=== PATIENT | female | born 1945 | race Caucasian/White ===

== ENCOUNTER 2024-11-15 16:41 | Emergency (ER) | payer MEDICARE, SELFPAY ==
[2024-11-15] VITALS (8 sets, daily range): BP systolic 120–201; BP diastolic 70–127; PULSE 73–118; RESP 16–17; TEMP 36.7; O2SAT 92–99; BMI 38.6
--- NOTE | 2024-11-15 16:46 | CTR_ITS ---
PROCEDURE INFORMATION: Exam: CT Cervical Spine Without Contrast Exam date and time: 11/15/2024 5:02 PM Age: 79 years old Clinical indication: Injury or trauma; Fall; Blunt trauma TECHNIQUE: Imaging protocol: Computed tomography of the cervical spine without contrast. Radiation optimization: All CT scans at this facility use at least one of these dose optimization techniques: automated exposure control; mA and/or kV adjustment per patient size (includes targeted exams where dose is matched to clinical indication); or iterative reconstruction. COMPARISON: CT head wo con* [id number] 11/15/2024 5:02 PM RADIATION DOSE METRICS: Total DLP (mGy-cm): 276.68 FINDINGS: Bones/joints: Axial detailed source images demonstrate no distinct linear areas of decreased density as might suggest the presence of the fracture. The C1-C2 complex appears to be intact and in the range of normal and is well visualized on the sagittal and coronal reconstructions. Trace 1-2 mm anterolisthesis of C3/C4 is noted and consistent with degenerative ligamentous laxity which is in keeping with degenerative disc changes noted at C 4 5 and C5-C6 as well as C6-C7. Coronal reconstructions demonstrate mild convexity of the cervical spine being directed to the left. C2-C3: No significant disc bulge or herniation. No severe spinal canal stenosis. No significant neural foraminal narrowing. C3-C4: Prominent degenerative facet changes are seen on the left and best noted on the sagittal and coronal reconstructions. The canal and neural foramina do appear to be relatively intact though with only mild narrowing on the left.. C4-C5: Mzoy-le-lkecbflm broad-based posterior spurring is seen eccentric to the left with marked encroachment of the left neural foramina being present. The canal is relatively patent.. C5-C6: Mild posterior spur/disc prominence is seen with mild bilateral degenerative foraminal narrowing. The canal is patent.. C6-C7: Moderate broad-based posterior spurring is seen mildly narrowing the canal and mildly to moderately narrowing both neural foramina to a greater degree on the left than the right. The canal is patent. C7-T1: No significant disc bulge or herniation. No severe spinal canal stenosis. No significant neural foraminal narrowing. Lungs: A punctate calcified granuloma seen along the anterior most aspect of the visualized apical lung regions on the right (image 89 series 6). Soft tissues: The thyroid gland appears to be unremarkable except for a punctate calcification in the right lobe. This is not felt to be significant. There are some non pathologically enlarged lymph nodes seen in the partially visualized Mamie carinal region with remote granulomatous like calcification seen . Degenerative dystrophic calcification is seen posteriorly at the midline centering at the C6-C7 level. CT/CT cervical spin wo con* [id number] IMPRESSION: 1. No acute osseous cervical spine CT findings. 2. Multilevel bmzx-eb-ilpisnco osteoarthritic/degenerative changes , as described. 3. Mild superior T3 endplate concavity of indeterminate age.
--- NOTE | 2024-11-15 16:46 | CTR_ITS ---
PROCEDURE INFORMATION: Exam: CT Head Without Contrast Exam date and time: 11/15/2024 5:02 PM Age: 79 years old Clinical indication: Injury or trauma; Head/neck trauma post fall TECHNIQUE: Imaging protocol: Computed tomography of the head without contrast. Radiation optimization: All CT scans at this facility use at least one of these dose optimization techniques: automated exposure control; mA and/or kV adjustment per patient size (includes targeted exams where dose is matched to clinical indication); or iterative reconstruction. COMPARISON: CT cervical spin wo con* [id number] 11/15/2024 5:02 PM RADIATION DOSE METRICS: Total DLP (mGy-cm): 1166.4 FINDINGS: Brain: Parenchymal structures of the brain demonstrates some mild patchy decreased density in the periventricular and deep white matter regions of the cerebral hemispheres. Beam hardening artifact is skull base slightly obscures resolution of the posterior fossa structures. The midline is intact. Punctate bilateral basal ganglia calcifications are noted and in the range of normal. No hemorrhage. Unremarkable white matter. No mass effect. Prominent atherosclerotic calcifications are seen involving the vertebral arteries at the level of the foramen magnum. Cerebral ventricles: No ventriculomegaly. Paranasal sinuses: Visualized sinuses are unremarkable. No fluid levels. Mastoid air cells: Visualized mastoid air cells are well aerated. Orbital cavities: Bilateral cataract surgery. Bilateral exophthalmos is noted. Bones: Unremarkable. No acute fracture. Soft tissues: Mild soft tissue swelling of the scalp just to the right of midline along the frontal area. CT/CT head wo con* [id number] IMPRESSION: 1. No acute intracranial head CT findings. 2. Mild frontal scalp hematoma. 3. Atrophy/involutional changes of aging with mild components of chronic small-vessel disease. 4. Bilateral exophthalmos question history of thyroid ophthalmopathy.
--- NOTE | 2024-11-15 16:47 | W.ED.FALL ---
HPI - Fall General: Stated Complaint: fall - head lac Time Seen by Provider: 11/15/24 16:46 History of Present Illness: 79-year-old female Associated symptoms-after fall: Denies abdominal pain, chest pain or neck pain Review of Systems Const: Denies: fever(s) or chills Card: Denies: chest pain Resp: Denies: dyspnea GI: Denies: abdominal pain : Denies: dysuria, urinary frequency or urinary urgency Musc: Denies: neck pain or back pain Skin/Breast: Denies: rash Physical Exam Const: COMMON NORMALS: no acute distress GENERAL APPEARANCE: cooperative and comfortable ORIENTATION/CONSCIOUSNESS: Yes awake, Yes oriented to person, Yes oriented to place and Yes oriented to time HENMT: COMMON NORMALS: normocephalic, atraumatic and hearing grossly normal bilaterally HEAD & SCALP: normocephalic and atraumatic Resp: COMMON NORMALS: normal respiratory effort, No retractions, No use of accessory muscles and clear to auscultation bilaterally AUSCULTATION: clear to auscultation bilaterally Cardio: COMMON NORMALS: regular rate, regular rhythm and No murmurs present (Cardio) RATE: regular rate RHYTHM: regular rhythm GI: COMMON NORMALS: Soft to palpation and No hepatosplenomegaly present AUSCULTATION: Yes normoactive bowel sounds PALPATION: Yes Soft to palpation, No Tenderness to palpation present (GI), No Guarding due to palpation present (GI) and Yes No hepatosplenomegaly present Extremity: COMMON NORMALS: normal to inspection, capillary refill normal, no clubbing, cyanosis or edema, no calf tenderness and no pedal edema Neuro: SENSORIUM/ORIENTATION: Yes oriented to person, Yes oriented to place and Yes oriented to time Skin: COMMON NORMALS: no rashes or lesions noted GENERAL SKIN EXAM: no rashes or lesions noted Discharge Plan Discharge Condition: Stable Print Language: [place] Coding Level of Care Code ED Aluminum Pool Installer for Estiven Suárez
--- NOTE | 2024-11-15 16:50 | XRR_ITS ---
PROCEDURE INFORMATION: Exam: XR Left Shoulder Exam date and time: 11/15/2024 5:02 PM Age: 79 years old Clinical indication: Left; Lt shoulder pain post fall; Additional info: Fall, shoulder pain TECHNIQUE: Imaging protocol: Radiologic exam of the left shoulder. Views: 2 or more views. COMPARISON: CT cervical spin wo con* [id number] 11/15/2024 5:02 PM FINDINGS: Bones/joints: Comminuted displaced fractures involve the humeral head. The humeral head remains properly positioned with respect to the glenoid. No other fracture noted. Soft tissues: Normal. XR/XR shoulder LT min 2V* [id number] IMPRESSION: Acute nondisplaced humeral head fractures
--- NOTE | 2024-11-15 16:54 | ED_ITS ---
Documented by User: Lisa Osborne MD 11/15/24 20:02 HPI - Fall 2 General: Chief Complaint: Fall Stated Complaint: fall - head lac Time Seen by Provider: 11/15/24 16:46 History of Present Illness: 79-year-old woman who presents emergency room after having had a fall by ambulance. She fell at home in her garage. Tripped. She hit her head on concrete. She has a large laceration running across her forehead. No loss of consciousness. She is having pain in her left arm and thinks she may have broken it. No blood thinners. No loss of consciousness. No altered mental status. She does have some nausea but no vomiting. She is quite hypertensive. Related Data Previous Rx's ?Medication ?Instructions ?Recorded hydrocodone 5 mg-acetaminophen 325 1 tab PO Q6H PRN pa in #20 tabs 11/15/24 mg tablet ondansetron 4 mg disintegrating 4 mg PO Q8H PRN nausea and 11/15/24 tablet vomiting #10 tabs polyethylene glycol 3350 17 17 g PO DAILY #510 grams 0 11/15/24 gram/dose oral powder (Miralax) Allergies Allergy/AdvReac Type Severity Reaction Status Date / Time morphine Allergy ALGY-Hives Verified 11/15/24 19:20 Review of Systems 2 Narrative: Constitutional symptoms: Negative except as documented in HPI. Skin symptoms: Negative except as documented in HPI. Eye symptoms: Negative except as documented in HPI. ENMT symptoms: Negative except as documented in HPI. Respiratory symptoms: Negative except as documented in HPI. Cardiovascular symptoms: Negative except as documented in HPI. Gastrointestinal symptoms: Negative except as documented in HPI. Genitourinary symptoms: Negative except as documented in HPI. Musculoskeletal symptoms: Negative except as documented in HPI. Neurologic symptoms: Negative except as documented in HPI. Psychiatric symptoms: Negative except as documented in HPI. Endocrine symptoms: Negative except as documented in HPI. Physical Exam 2 Narrative: EXAM NARRATIVE: General: Alert, no acute distress. Skin: Warm, dry. Head: Normocephalic, large laceration across the forehead.. Neck: Supple, trachea midline. Eye: Extraocular movements are intact. Ears, nose, mouth and throat: mucosa moist. Cardiovascular: Regular, Normal peripheral perfusion. Respiratory: Lungs are clear to auscultation, respirations are non-labored, breath sounds are equal, Symmetrical chest wall expansion. Gastrointestinal: Soft, Nontender, Non distended Musculoskeletal: No obvious deformity of the left shoulder but she does have extreme pain with any movement. No other deformities. Neurological: Alert and oriented, No focal neurological deficit observed. Psychiatric: Cooperative, appropriate mood & affect. Course 2 Vital Signs: Vital signs: Vital Signs Temperature 98.0 F 11/15/24 16:43 Pulse Rate 82 11/15/24 20:00 Respiratory Rate 16 11/15/24 18:51 Blood Pressure 152/123 11/15/24 20:00 Pulse Oximetry 98 11/15/24 20:00 Oxygen Delivery Me thod Room Air 11/15/24 20:00 MDM - Fall Medical Decision Making CT head: Laceration/hematoma over the forehead. No acute intracranial process. no intracranial hemorrhage, no evidence of infarct. no evidence of acute fracture.This was reviewed and interpreted by myself the ER physician. CT of the cervical spine: Degenerative changes. No fracture. Good alignment. No step-offs. This was reviewed and interpreted by myself the emergency room physician. I also reviewed the radiologist report. X-ray of the left shoulder shows a nondisplaced humeral head fracture. This was reviewed and interpreted by myself the emergency room physician. I also reviewed the radiology report Lab Review: Laboratory results were reviewed and interpreted by myself the emergency room physician. Mild leukocytosis. No renal failure. No anemia. I reviewed the patient's medical record. Reexamination: Patient has had no altered mental status. No confusion. She had an allergic reaction to morphine. She has had hydrocodone before so we are giving that here and writing some for home. Consultation: I spoke with Dr. Stevenson who is on-call for orthopedics. He recommends sling and follow-up in clinic. Assessment and plan: Fall Head injury Facial laceration Humeral head fracture Accelerated hypertension ?Morphine with a reaction. She is tolerating hydrocodone. Also some hydralazine for her blood pressure. - Discharged home - Discussed plan with patient. Answered any questions. - Evaluation and treatment of this problem were appropriate in the emergency setting. Lab Data 11/15/24 18:21 11/15/24 18:21 Radiology Impressions Cervical Spine CT 11/15/24 16:46 IMPRESSION: 1. No acute osseous cervical spine CT findings. 2. Multilevel vttz-rb-hjbcwrts osteoarthritic/degenerative changes , as described. 3. Mild superior T3 endplate concavity of indeterminate age. Head CT 11/15/24 16:46 IMPRESSION: 1. No acute intracranial head CT findings. 2. Mild frontal scalp hematoma. 3. Atrophy/involutional changes of aging with mild components of chronic small-vessel disease. 4. Bilateral exophthalmos question history of thyroid ophthalmopathy. Shoulder X-Ray 11/15/24 16:50 IMPRESSION: Acute nondisplaced humeral head fractures Laboratory Results WBC 15.17 10^3/uL (3.29-11.43) H 11/15/24 18:21 RBC 4.34 10^6/uL (3.85-5.65) 11/15/24 18:21 Hgb 15.10 g/dL (11.27-16.99) 11/15/24 18:21 Hct 45.3 % (36-47) 11/15/24 18:21 MCV 104.4 fl (85-98) H 11/15/24 18:21 MCH 34.8 pg (27-33) H 11/15/24 18:21 MCHC 33.3 g/dL (30-55) 11/15/24 18:21 RDW 13.6 % (12.1-15.1) 11/15/24 18:21 Plt Count 233 10^3/cmm (157-399) 11/15/24 18:21 MPV 10.2 fL (7.4-10.4) 11/15/24 18:21 Neut % (Auto) 85.3 % 11/15/24 18:21 Lymph % (Auto) 8.8 % 11/15/24 18:21 Refugio % (Auto) 4.6 % 11/15/24 18:21 Eos % (Auto) 0.3 % 11/15/24 18:21 Baso % (Auto) 0.3 % 11/15/24 18:21 Neut # (Auto) 12.94 10^3/uL (1.8-7.7) H 11/15/24 18:21 Lymph # (Auto) 1.3 10^3/uL (0.8-4.8) 11/15/24 18:21 [place]ug[place] # (Auto) 0.7 10^3/uL (0.2-0.9) 11/15/24 18:21 Eos # (Auto) 0.1 10^3/uL (0.0-0.8) 11/15/24 18:21 Baso # (Auto) 0.0 10^3/uL (0.0-0.1) 11/15/24 18:21 Nucleated RBC % (auto) 0 % 11/15/24 18:21 Nucleated RBCs # 0.0 /100WBC 11/15/24 18:21 Sodium 134 mmol/L (136-145) L 11/15/24 18:21 Potassium 3.8 mmol/L (3.5-5.1) 11/15/24 18:21 Chloride 98 mmol/L (98-107) 11/15/24 18:21 Carbon Dioxide 21 mmol/L (22-29) L 11/15/24 18:21 Anion Gap 18.8 (5-19) 11/15/24 18:21 BUN 17 mg/dL (8-23) 11/15/24 18:21 Creatinine 0.4 mg/dL (0.5-0.9) L 11/15/24 18:21 GFR Calculation Not Reportable 11/15/24 18:21 Glucose 135 mg/dL (65-115) H 11/15/24 18:21 Calculated Osmolality 282 mOsm/kg (285-295) L 11/15/24 18:21 Calcium 9.3 mg/dL (8.5-10.5) 11/15/24 18:21 Total Bilirubin 1.4 mg/dL (0.15-1.2) H 11/15/24 18:21 AST 61 U/L (0-32) H 11/15/24 18:21 ALT 43 U/L (0-33) H 11/15/24 18:21 Alkaline Phosphatase 207 U/L (35-105) H 11/15/24 18:21 Total Protein 7.6 g/dL (6.6-8.7) 11/15/24 18:21 Albumin 3.8 g/dL (3.5-5.2) 11/15/24 18:21 Globulin 3.8 g/dL (1.3-4.6) 11/15/24 18:21 All radiology interpretation(s) finalized by discharge Discharge Plan Discharge Patient Disposition: Home Clinical Impression: Forehead laceration, Fracture of head of humerus, Fall, Head injury, Accelerated hypertension Condition: Stable Prescriptions: New hydrocodone-acetaminophen 5-325 mg tablet 1 tab PO Q6H PRN (Reason: pain) Qty: 20 0RF polyethylene glycol 3350 [Miralax] 17 gram/dose powder 17 g PO DAILY Qty: 510 0RF Rx Instructions: Take 1 scoop daily while taking pain medications. ondansetron 4 mg tablet,disintegrating 4 mg PO Q8H PRN (Reason: nausea and vomiting) Qty: 10 0RF Discharge Orders: Discharge ED (Routine); Ordered 11/15/24 Ordered By: Lisa Osborne Referrals: Giovanni Stevenson MD [Physician] - 4-7 days (Please call for follow-up appointment.) Discharge Diet: Usual diet Discharge Activity: Increase activity as tolerated Patient Instructions: Opioid Safety, Pain Management Activity Restrictions/Additional Instructions: Keep the area clean and dry, wash twice per day with antibacterial soap and water. Return to your primary provider or the emergency room in 10 days for suture removal. Avoid any prolonged submersion in water. Avoid all christie water, pond water, streams or other untreated water. Thank you for choosing [facility] for your healthcare needs today. Please realize this is an emergency room and that we are providing you with a medical screening exam and this may not be complete and all inclusive of all the testing and or work up that you may need to determine your ailment or severity of your illness. You have been screened and evaluated and felt safe for discharge. Health conditions do change or evolve sometimes and as such it is important that you follow up with your Primary Doctor to be re checked, 3-5 days is a general good time frame for follow up. You are always welcome to return to the ED for re assessment if your symptoms are worsening or you have new concerns Print Language: Citizen Of [place] Coding Level of Care Code ED Carpet Cutter for Chg Fwd Documented by User: ALEXIS Loya 11/15/24 20:24 HPI - Fall 2 General: Chief Complaint: Fall Stated Complaint: fall - head lac Time Seen by Provider: 11/15/24 16:46 Related Data Previous Rx's ?Medication ?Instructions ?Recorded hydrocodone 5 mg-acetaminophen 325 1 tab PO Q6H PRN pa in #20 tabs 11/15/24 mg tablet ondansetron 4 mg disintegrating 4 mg PO Q8H PRN nausea and 11/15/24 tablet vomiting #10 tabs polyethylene glycol 3350 17 17 g PO DAILY #510 grams 0 11/15/24 gram/dose oral powder (Miralax) Allergies Allergy/AdvReac Type Severity Reaction Status Date / Time morphine Allergy ALGY-Hives Verified 11/15/24 19:20 Procedures Laceration Laceration 1: Site: scalp Size (cm): 10 Description: linear Depth: simple, single layer Local Anesthetic: lidocaine 1% and with epi Amount of anesthesia used (mL): 8 Skin layer closed with: nylon Size (cm): 6-0 Number of sutures: 10 Technique: simple, interrupted Course 2 Vital Signs: Vital signs: Vital Signs Temperature 98.0 F 11/15/24 16:43 Pulse Rate 82 11/15/24 20:00 Respiratory Rate 16 11/15/24 18:51 Blood Pressure 152/123 11/15/24 20:00 Pulse Oximetry 98 11/15/24 20:00 Oxygen Delivery Me thod Room Air 11/15/24 20:00 MDM - Fall Lab Data 11/15/24 18:21 11/15/24 18:21 Radiology Impressions Cervical Spine CT 11/15/24 16:46 IMPRESSION: 1. No acute osseous cervical spine CT findings. 2. Multilevel fpak-ld-ojpabnvz osteoarthritic/degenerative changes , as described. 3. Mild superior T3 endplate concavity of indeterminate age. Head CT 11/15/24 16:46 IMPRESSION: 1. No acute intracranial head CT findings. 2. Mild frontal scalp hematoma. 3. Atrophy/involutional changes of aging with mild components of chronic small-vessel disease. 4. Bilateral exophthalmos question history of thyroid ophthalmopathy. Shoulder X-Ray 11/15/24 16:50 IMPRESSION: Acute nondisplaced humeral head fractures Laboratory Results WBC 15.17 10^3/uL (3.29-11.43) H 11/15/24 18:21 RBC 4.34 10^6/uL (3.85-5.65) 11/15/24 18:21 Hgb 15.10 g/dL (11.27-16.99) 11/15/24 18:21 Hct 45.3 % (36-47) 11/15/24 18:21 MCV 104.4 fl (85-98) H 11/15/24 18:21 MCH 34.8 pg (27-33) H 11/15/24 18:21 MCHC 33.3 g/dL (30-55) 11/15/24 18:21 RDW 13.6 % (12.1-15.1) 11/15/24 18:21 Plt Count 233 10^3/cmm (157-399) 11/15/24 18:21 MPV 10.2 fL (7.4-10.4) 11/15/24 18:21 Neut % (Auto) 85.3 % 11/15/24 18:21 Lymph % (Auto) 8.8 % 11/15/24 18:21 Refugio % (Auto) 4.6 % 11/15/24 18:21 Eos % (Auto) 0.3 % 11/15/24 18:21 Baso % (Auto) 0.3 % 11/15/24 18:21 Neut # (Auto) 12.94 10^3/uL (1.8-7.7) H 11/15/24 18:21 Lymph # (Auto) 1.3 10^3/uL (0.8-4.8) 11/15/24 18:21 [place]ug[place] # (Auto) 0.7 10^3/uL (0.2-0.9) 11/15/24 18:21 Eos # (Auto) 0.1 10^3/uL (0.0-0.8) 11/15/24 18:21 Baso # (Auto) 0.0 10^3/uL (0.0-0.1) 11/15/24 18:21 Nucleated RBC % (auto) 0 % 11/15/24 18: Nucleated RBCs # 0.0 /100WBC 11/15/24 18:21 Sodium 134 mmol/L (136-145) L 11/15/24 18:21 Potassium 3.8 mmol/L (3.5-5.1) 11/15/24 18:21 Chloride 98 mmol/L (98-107) 11/15/24 18:21 Carbon Dioxide 21 mmol/L (22-29) L 11/15/24 18:21 Anion Gap 18.8 (5-19) 11/15/24 18:21 BUN 17 mg/dL (8-23) 11/15/24 18:21 Creatinine 0.4 mg/dL (0.5-0.9) L 11/15/24 18:21 GFR Calculation Not Reportable 11/15/24 18:21 Glucose 135 mg/dL (65-115) H 11/15/24 18:21 Calculated Osmolality 282 mOsm/kg (285-295) L 11/15/24 18:21 Calcium 9.3 mg/dL (8.5-10.5) 11/15/24 18:21 Total Bilirubin 1.4 mg/dL (0.15-1.2) H 11/15/24 18:21 AST 61 U/L (0-32) H 11/15/24 18:21 ALT 43 U/L (0-33) H 11/15/24 18:21 Alkaline Phosphatase 207 U/L (35-105) H 11/15/24 18:21 Total Protein 7.6 g/dL (6.6-8.7) 11/15/24 18:21 Albumin 3.8 g/dL (3.5-5.2) 11/15/24 18:21 Globulin 3.8 g/dL (1.3-4.6) 11/15/24 18:21 Discharge Plan Discharge Patient Disposition: Home Clinical Impression: Forehead laceration, Fracture of head of humerus, Fall, Head injury, Accelerated hypertension Condition: Stable Prescriptions: New hydrocodone-acetaminophen 5-325 mg tablet 1 tab PO Q6H PRN (Reason: pain) Qty: 20 0RF polyethylene glycol 3350 [Miralax] 17 gram/dose powder 17 g PO DAILY Qty: 510 0RF Rx Instructions: Take 1 scoop daily while taking pain medications. ondansetron 4 mg tablet,disintegrating 4 mg PO Q8H PRN (Reason: nausea and vomiting) Qty: 10 0RF Discharge Orders: Discharge ED (Routine); Ordered 11/15/24 Ordered By: Lisa L Osborne Referrals: Giovanni Stevenson MD [Physician] - 4-7 days (Please call for follow-up appointment.) Discharge Diet: Usual diet Discharge Activity: Increase activity as tolerated Patient Instructions: Opioid Safety, Pain Management Activity Restrictions/Additional Instructions: Keep the area clean and dry, wash twice per day with antibacterial soap and water. Return to your primary provider or the emergency room in 10 days for suture removal. Avoid any prolonged submersion in water. Avoid all christie water, pond water, streams or other untreated water. Thank you for choosing [facility] for your healthcare needs today. Please realize this is an emergency room and that we are providing you with a medical screening exam and this may not be complete and all inclusive of all the testing and or work up that you may need to determine your ailment or severity of your illness. You have been screened and evaluated and felt safe for discharge. Health conditions do change or evolve sometimes and as such it is important that you follow up with your Primary Doctor to be re checked, 3-5 days is a general good time frame for follow up. You are always welcome to return to the ED for re assessment if your symptoms are worsening or you have new concerns Print Language: Citizen Of [place] Coding Level of Care Code ED Carpet Cutter for Estiven Suárez
--- NOTE | 2024-11-15 17:20 | ECG_ITS ---
[employer] Test Date: 2024-11-15 Pat Name: Beverley Hallman Department: Room: Gender: Female Transfusion Aide: : 1945 Requested By: Freddy Mariscal Order Number: [id number] Shaina MD: Gordon Brown M.D. Measurements Intervals [place] Rate: 82 P: -16 RI: 181 QRS: 64 QRSD: 82 T: 6 QT: 384 QTc: 451 Interpretive Statements SINUS RHYTHM POSSIBLE ANTERIOR MYOCARDIAL INFARCTION , PROBABLY OLD [30 ms Q WAVE IN V3/V4, OR R < 0.2 mV IN V4] No previous ECG available for comparison Electronically Signed On 11-16-2024 18:01:05 UNDERWATER TRAPPER by Gordon Brown M.D. [email or web address]
[2024-11-15] MEDS: lidocaine 1% 10 ML INJ INJECTION (17:45)
[2024-11-15] MEDS: tetanus-dipt-pertussis 0.5 mL SDV IM (17:58)
[2024-11-15 18:38] LABS: Basophils % 0.3 %; Eosinophils # 0.1 10^3/uL (0.0-0.8); Eosinophils % 0.3 %; Hematocrit 45.3 % (36-47); Lymphocytes # 1.3 10^3/uL (0.8-4.8); Lymphocytes % 8.8 %; Mean Corpuscular HGB Conc 33.3 g/dL (30-55); Mean Corpuscular Hemoglobin 34.8 pg (27-33); Mean Corpuscular Volume 104.4 fl (85-98); Mean Platelet Volume 10.2 fL (7.4-10.4); Monocytes # 0.7 10^3/uL (0.2-0.9); Monocytes % 4.6 %; Neutrophils # 12.94 10^3/uL (1.8-7.7); Neutrophils % 85.3 %; Nucleated Red Blood Cells % 0 %; Platelet Count 233 10^3/cmm (157-399); Red Blood Count 4.34 10^6/uL (3.85-5.65); Red Cell Distribution Width 13.6 % (12.1-15.1); White Blood Count 15.17 10^3/uL (3.29-11.43)
[2024-11-15] MEDS: ondansetron 2 mg/ML SDV 2 mL 4 MG IVP (18:46)
[2024-11-15] MEDS: morphine 4 mg/mL SDV 1 mL IVP (18:51)
[2024-11-15 19:02] LABS: Alanine Aminotransferase 43 U/L (0-33); Albumin Level 3.8 g/dL (3.5-5.2); Alkaline Phosphatase 207 U/L (35-105); Blood Urea Nitrogen 17 mg/dL (8-23); Calcium 9.3 mg/dL (8.5-10.5); Carbon Dioxide 21 mmol/L (22-29); Chloride 98 mmol/L (98-107); Creatinine Clr Calc Pharmacy 78.0147; Globulin 3.8 g/dL (1.3-4.6); Glucose 135 mg/dL (65-115); Osmolality Calculated 282 mOsm/kg (285-295); Sodium 134 mmol/L (136-145); Total Bilirubin 1.4 mg/dL (0.15-1.2); Total Protein 7.6 g/dL (6.6-8.7)
[2024-11-15 19:06] LABS: Anion Gap 18.8 (5-19); Aspartate Amino Transferase 61 U/L (0-32); Potassium 3.8 mmol/L (3.5-5.1)
[2024-11-15] MEDS: diphenhydrAMINE 50 mg/mL SDV 1mL 25 MG IVP (19:19)
--- NOTE | 2024-11-15 19:19 | PC.NURSE ---
pt med reaction pt was given zofran and morphine. pt began having itching and welts on her right arm. morphine added to pt allergy list and education given.
[2024-11-15] MEDS: HYDROcodone-acetaminophen 10-325 mg Tablet 1 TAB PO (20:02)
[2024-11-15] MEDS: hyDRALAzine 20 mg/mL INJ 1 mL 10 MG IVP (20:02)
[2024-11-15] MEDS: HYDROcodone-acetaminophen 5-325 mg Tablet 2 TAB PO (20:05)
== END 2024-11-15 20:30 | disposition home or self-care (01) ==
PROVIDERS: Family Medicine; Emergency Provider Emergency Medicine
DX: S42.302A Unspecified fracture of shaft of humerus, left arm, initial encounter for closed fracture (principal); S01.81XA Laceration without foreign body of other part of head, initial encounter; S09.8XXA Other specified injuries of head, initial encounter; I10 Essential (primary) hypertension; W19.XXXA Unspecified fall, initial encounter; Z23 Encounter for immunization
CPT/HCPCS: 12015; 70450; 72125; 73030; 80053; 85025; 90471; 90715; 93005; 96374; 96375; 99285; J0360; J1200; J2270; J2405

== ENCOUNTER → 2024-11-25 10:34 | Outpatient (BNVA) | payer MEDICARE, SELFPAY | PROVIDERS: Visit Provider Orthopaedic Surgery | DX: S42.202A Unspecified fracture of upper end of left humerus, initial encounter for closed fracture (principal); W19.XXXA Unspecified fall, initial encounter | CPT/HCPCS: 73030; 99204 ==

== ENCOUNTER 2024-11-25 11:23 | Emergency (ER) | payer MEDICARE, SELFPAY ==
[2024-11-25 11:32] VITALS: BP 127/79; PULSE 51; TEMP 36.3; O2SAT 96; BMI 39.6
--- NOTE | 2024-11-25 11:44 | W.ED.RECABL ---
HPI - Recheck/Abnormal Lab/Rx General: Chief Complaint: Recheck/Abnormal Lab/Rx Stated Complaint: removal of stitches Time Seen by Provider: 11/25/24 11:39 Source: patient and family Mode of arrival: wheelchair Limitations: no limitations History of Present Illness: Patient is a 79-year-old female presents to ED today along with family for an encounter for suture removal. Patient was treated here in the emergency department 10 days ago and had sutures to her forehead placed. She has not had any issues with these. She has no other concerns at this time. complaint: suture/staple removal Initial visit (ago): day(s) Initial visit for: laceration Returns today for: staple/stitch removal Symptoms since prior visit: no new symptoms Associated symptoms: none Related Data Home Medications ?Medication ?Instructions ?Recorded ?Confirmed allopurinol 300 mg tablet 300 mg PO DAILY 11/25/24 11/25/24 hydrochlorothiazide 25 mg tablet 25 mg PO DAILY 11/25/24 11/25/24 levothyroxine 75 mcg tablet 75 mcg PO DAILY 11/25/24 11/25/24 lisinopril 20 mg tablet 40 mg PO DAILY 11/25/24 11/25/24 loratadine 10 mg tablet (Allergy 10 mg PO DAILY 11/25/24 11/25/24 Relief (loratadine)) naproxen 500 mg tablet 500 mg PO BID 11/25/24 11/25/24 tizanidine 4 mg tablet 4 mg PO TID 11/25/24 11/25/24 Previous Rx's ?Medication ?Instructions ?Recorded hydrocodone 5 mg-acetaminophen 325 1 tab PO Q6H PRN pain #20 tabs 11/15/24 mg tablet ondansetron 4 mg disintegrating 4 mg PO Q8H PRN nausea and 11/15/24 tablet vomiting #10 tabs polyethylene glycol 3350 17 17 g PO DAILY #510 grams 11/15/24 gram/dose oral powder (Miralax) Allergies Allergy/AdvReac Type Severity Reaction Status Date / Time morphine Allergy ALGY-Hives Verified 11/25/24 11:38 Review of Systems Skin/Breast: Reports: other (healing forehead laceration) Neuro: Denies: headache(s) PFSH ED PFSH: Social History Smoking and tobacco/nicotine status: never used tobacco/nicotine Physical Exam Const: COMMON NORMALS: no acute distress, average body habitus, no limitations, healthy appearing, alert and well nourished HENMT: FACE & SINUS: other (healing forehead laceration; looks clean; sutures removed) Neck/C-Spine: COMMON NORMALS: full ROM CERVICAL SPINE: No Cervical spine tenderness Neuro: SENSORIUM/ORIENTATION: Yes alert Course Vital Signs: Vital signs: Vital Signs Temperature 97.4 F L 11/25/24 11:32 Pulse Rate 51 L 11/25/24 11:32 Blood Pressure 127/79 11/25/24 11:32 Pulse Oximetry 96 11/25/24 11:32 Oxygen Delivery Me thod Room Air 11/25/24 11:32 MDM - Recheck/Abnormal Lab/Rx Medical Decision Making Laceration is well-appearing/healing. Sutures removed without difficulty. Medical Records I reviewed the patient's medical records. No radiology studies performed this visit Discharge Plan Discharge Patient Disposition: Home Clinical Impression: Encounter for removal of sutures Condition: Stable Prescriptions: No Action tizanidine 4 mg tablet 4 mg PO TID loratadine [Allergy Relief (loratadine)] 10 mg tablet 10 mg PO DAILY naproxen 500 mg tablet 500 mg PO BID lisinopril 20 mg tablet 40 mg PO DAILY levothyroxine 75 mcg tablet 75 mcg PO DAILY allopurinol 300 mg tablet 300 mg PO DAILY hydrochlorothiazide 25 mg tablet 25 mg PO DAILY hydrocodone-acetaminophen 5-325 mg tablet 1 tab PO Q6H PRN (Reason: pain) Qty: 20 0RF polyethylene glycol 3350 [Miralax] 17 gram/dose powder 17 g PO DAILY Qty: 510 0RF Rx Instructions: Take 1 scoop daily while taking pain medications. ondansetron 4 mg tablet,disintegrating 4 mg PO Q8H PRN (Reason: nausea and vomiting) Qty: 10 0RF Discharge Orders: Discharge ED (Routine); Ordered 11/25/24 Ordered By: Maggie Vega Referrals: Angel Chauhan DO [Primary Care Provider] - Patient Instructions: Stitches Removal (ED) Print Language: Jamaican Coding Level of Care Code ED Outreach Rep for Bereketg Fwd
[2024-11-25 11:51] VITALS: BP 119/74; PULSE 52; O2SAT 94
== END 2024-11-25 11:52 | disposition home or self-care (01) ==
PROVIDERS: Emergency Provider Physician Assistant; PCP Family Medicine
DX: Z48.02 Encounter for removal of sutures (principal)
CPT/HCPCS: 99281

== ENCOUNTER 2024-12-07 13:13 | Emergency (ER) | payer MEDICARE, SELFPAY ==
[2024-12-07 13:19] VITALS: BP 111/57; PULSE 82; RESP 22; O2SAT 98; BMI 38.4
--- NOTE | 2024-12-07 13:20 | ECG_ITS ---
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
--- NOTE | 2024-12-07 13:20 | XRR_ITS ---
PROCEDURE INFORMATION: Exam: XR Chest Exam date and time: 12/07/2024 1:28 PM Age: 79 years old Clinical indication: Other: Weakness TECHNIQUE: Imaging protocol: Radiologic exam of the chest. Views: 1 view. COMPARISON: CR XR shoulder LT min 2V* [id number] 11/25/2024 10:35 AM FINDINGS: Lungs: Unremarkable. No consolidation. Pleural spaces: Unremarkable. No pleural effusion. No pneumothorax. Heart/Mediastinum: Unremarkable. No cardiomegaly. Bones/joints: Previously seen proximal left humeral fracture is again noted. No new findings. XR/XR chest 1V portable [id number] IMPRESSION: No acute findings.
--- NOTE | 2024-12-07 13:22 | W.ED.SYNCOPE ---
HPI - Syncope General: Chief Complaint: Syncope Stated Complaint: symptomatic bradycardia Time Seen by Provider: 12/07/24 13:15 History of Present Illness: 79-year-old female who presents emergency room after a syncopal episode. She was visiting her in a fpc and passed out. EMS reports she was bradycardic and hypotensive on their arrival. She received some fluid and has since improved. On presentation here pulse is 82 and her blood pressure is 111/57. She was sitting in the chair. No injuries. She repeatedly tells me that her 's family wants to kill her. I do not see how it is related to what is going on here today exactly. Related Data Home Medications ?Medication ?Instructions ?Recorded ?Confirmed allopurinol 300 mg tablet 300 mg PO DAILY 11/25/24 12/07/24 hydrochlorothiazide 25 mg tablet 25 mg PO DAILY 11/25/24 12/07/24 levothyroxine 75 mcg tablet 75 mcg PO DAILY 11/25/24 12/07/24 lisinopril 20 mg tablet 40 mg PO DAILY 11/25/24 12/07/24 naproxen 500 mg tablet 500 mg PO BID 11/25/24 12/07/24 tizanidine 4 mg tablet 4 mg PO TID PRN muscle spasms 11/25/24 12/07/24 Previous Rx's ?Medication ?Instructions ?Recorded hydrocodone 5 mg-acetaminophen 325 1 tab PO Q6H PRN pain #20 tabs 11/15/24 mg tablet ondansetron 4 mg disintegrating 4 mg PO Q8H PRN nausea and 11/15/24 tablet vomiting #10 tabs polyethylene glycol 3350 17 17 g PO DAILY #510 grams 11/15/24 gram/dose oral powder (Miralax) hydroxyzine HCl 10 mg tablet 10 mg PO BID PRN anxiety #60 tabs 12/03/24 Allergies Allergy/AdvReac Type Severity Reaction Status Date / Time morphine Allergy ALGY-Hives Verified 12/07/24 13:27 Review of Systems Narrative: Constitutional symptoms: Negative except as documented in HPI. Skin symptoms: Negative except as documented in HPI. Eye symptoms: Negative except as documented in HPI. ENMT symptoms: Negative except as documented in HPI. Respiratory symptoms: Negative except as documented in HPI. Cardiovascular symptoms: Negative except as documented in HPI. Gastrointestinal symptoms: Negative except as documented in HPI. Genitourinary symptoms: Negative except as documented in HPI. Musculoskeletal symptoms: Negative except as documented in HPI. Neurologic symptoms: Negative except as documented in HPI. Psychiatric symptoms: Negative except as documented in HPI. Endocrine symptoms: Negative except as documented in HPI. PFSH ED PFSH: Social History Smoking and tobacco/nicotine status: never used tobacco/nicotine Physical Exam Narrative: EXAM NARRATIVE: General: Alert, no acute distress. Skin: Warm, dry. Head: Normocephalic, atraumatic. Neck: Supple, trachea midline. Eye: Extraocular movements are intact. Ears, nose, mouth and throat: Tacky oral mucosa Cardiovascular: Regular, Normal peripheral perfusion. Respiratory: Lungs are clear to auscultation, respirations are non-labored, breath sounds are equal, Symmetrical chest wall expansion. Gastrointestinal: Soft, Nontender, Non distended Musculoskeletal: Normal ROM, no deformity. Neurological: Alert and oriented, No focal neurological deficit observed. Psychiatric: Cooperative, appropriate mood & affect. Course Vital Signs: Vital signs: Vital Signs Pulse Rate 82 12/07/24 13:27 Respiratory Rate 22 H 12/07/24 13:27 Blood Pressure 111/57 12/07/24 13:27 Pulse Oximetry 98 12/07/24 13:27 Oxygen Delivery Me thod Room Air 12/07/24 13:19 MDM - Syncope Medical Decision Making Medical decision making: Differential diagnosis including but not limited to and based on the above HPI, review of systems and physical exam in this patient with syncope: Vasovagal, orthostatics hypotension, cardiac dysrhythmia, myocardial infarction, infection and hypotension, Orders placed to evaluate differential diagnosis based on the above differential, HPI and physical exam EKG: Time 1414. Rate 63. Normal sinus rhythm, No ST-T changes, no ectopy, normal CT & QRS intervals, This was reviewed and interpreted by myself the ER physician at 1418 Chest x-ray: No acute process. No infiltrate. No pneumothorax. This was reviewed and interpreted by myself the emergency room physician. I also reviewed the radiology report. Lab Review: Laboratory results were reviewed and interpreted by myself the emergency room physician. No leukocytosis. No anemia. No renal failure. Troponin is negative. Urinalysis is negative for infection. I reviewed the patient's medical record. Reexamination: Patient has remained stable. Heart rate has remained stable throughout. No dysrhythmias. No further bradycardia. We discussed that she needs to follow with her primary care provider and also work on staying hydrated. Assessment and plan: Vasovagal syncope Dehydration ? Normal saline bolus in the emergency room - Discharged home - Discussed plan with patient. Answered any questions. - Evaluation and treatment of this problem were appropriate in the emergency setting. Lab Data 12/07/24 16:24 12/07/24 16:24 Radiology Impressions Chest X-Ray 12/07/24 13:20 IMPRESSION: No acute findings. Laboratory Results WBC 6.69 10^3/uL (3.29-11.43) 12/07/24 16:24 RBC 3.51 10^6/uL (3.85-5.65) L 12/07/24 16:24 Hgb 12.10 g/dL (11.27-16.99) 12/07/24 16:24 Hct 38.1 % (36-47) 12/07/24 16:24 MCV 108.5 fl (85-98) H 12/07/24 16:24 MCH 34.5 pg (27-33) H 12/07/24 16:24 MCHC 31.8 g/dL (30-55) 12/07/24 16:24 RDW 14.6 % (12.1-15.1) 12/07/24 16:24 Plt Count 251 10^3/cmm (157-399) 12/07/24 16:24 MPV 9.5 fL (7.4-10.4) 12/07/24 16:24 Neut % (Auto) 65.7 % 12/07/24 16:24 Lymph % (Auto) 24.2 % 12/07/24 16:24 [place] % (Auto) 5.7 % 12/07/24 16:24 Eos % (Auto) 3.1 % 12/07/24 16:24 Baso % (Auto) 0.6 % 12/07/24 16:24 Neut # (Auto) 4.39 10^3/uL (1.8-7.7) 12/07/24 16:24 Lymph # (Auto) 1.6 10^3/uL (0.8-4.8) 12/07/24 16:24 [place] # (Auto) 0.4 10^3/uL (0.2-0.9) 12/07/24 16:24 Eos # (Auto) 0.2 10^3/uL (0.0-0.8) 12/07/24 16:24 Baso # (Auto) 0.0 10^3/uL (0.0-0.1) 12/07/24 16:24 Nucleated RBC % (auto) 0 % 12/07/24 16:24 Nucleated RBCs # 0.0 /100WBC 12/07/24 16:24 Sodium 138 mmol/L (136-145) 12/07/24 16:24 Potassium 4.1 mmol/L (3.5-5.1) 12/07/24 16:24 Chloride 104 mmol/L (98-107) 12/07/24 16:24 Carbon Dioxide 22 mmol/L (22-29) 12/07/24 16:24 Anion Gap 16.1 (5-19) 12/07/24 16:24 BUN 16 mg/dL (8-23) 12/07/24 16:24 Creatinine 0.6 mg/dL (0.5-0.9) 12/07/24 16:24 GFR Calculation Not Reportable 12/07/24 16:24 Glucose 97 mg/dL (65-115) 12/07/24 16:24 Calculated Osmolality 287 mOsm/kg (285-295) 12/07/24 16:24 Lactic Acid 0.9 mmol/L (0.5-2.2) 12/07/24 16:24 Calcium 8.5 mg/dL (8.5-10.5) 12/07/24 16:24 Total Bilirubin 1.1 mg/dL (0.15-1.2) 12/07/24 16:24 AST 31 U/L (0-32) 12/07/24 16:24 ALT 19 U/L (0-33) 12/07/24 16:24 Alkaline Phosphatase 188 U/L (35-105) H 12/07/24 16:24 Troponin T Baseline 10 ng/L (0-10) 12/07/24 16:24 Total Protein 5.9 g/dL (6.6-8.7) L 12/07/24 16:24 Albumin 3.3 g/dL (3.5-5.2) L 12/07/24 16:24 Globulin 2.6 g/dL (1.3-4.6) 12/07/24 16:24 Urine Color Yellow (Yellow) 12/07/24 15:29 Urine Appearance Clear (CLEAR) 12/07/24 15:29 Urine pH 6 (5-7) 12/07/24 15:29 Ur Specific [place] 1.005 (1.005-1.030) 12/07/24 15:29 Urine Protein Neg (Negative) 12/07/24 15:29 Urine Glucose (UA) Norm (Normal) 12/07/24 15: Urine Ketones Negative (Negative) 12/07/24 15: Urine Blood Neg (Negative) 12/07/24 15: Urine Nitrate Negative (Negative) 12/07/24 15: Urine Bilirubin Neg (Negative) 12/07/24 15: Urine Urobilinogen Neg mg/dL (Negative) 12/07/24 15: Ur Leukocyte Esterase Negative (Negative) 12/07/24 15:29 Urine RBC 0-2 /hpf (0-2) 12/07/24 15:29 Urine WBC 0-5 /hpf (0-5) 12/07/24 15:29 Ur Squamous Epith Cells 0-5 /hpf (0-5) 12/07/24 15:29 Amorphous Sediment Not Reportable 12/07/24 15:29 Urine Bacteria None seen /hpf (NONE) 12/07/24 15:29 Hyaline Casts 0-4 /lpf H 12/07/24 15:29 All radiology interpretation(s) finalized by discharge Discharge Plan Discharge Patient Disposition: Home Clinical Impression: Vasovagal syncope, Dehydration Condition: Stable Prescriptions: No Action tizanidine 4 mg tablet 4 mg PO TID PRN (Reason: muscle spasms) naproxen 500 mg tablet 500 mg PO BID hydroxyzine HCl 10 mg tablet 10 mg PO BID PRN (Reason: anxiety) Qty: 60 0RF lisinopril 20 mg tablet 40 mg PO DAILY levothyroxine 75 mcg tablet 75 mcg PO DAILY allopurinol 300 mg tablet 300 mg PO DAILY hydrochlorothiazide 25 mg tablet 25 mg PO DAILY hydrocodone-acetaminophen 5-325 mg tablet 1 tab PO Q6H PRN (Reason: pain) Qty: 20 0RF polyethylene glycol 3350 [Miralax] 17 gram/dose powder 17 g PO DAILY Qty: 510 0RF Rx Instructions: Take 1 scoop daily while taking pain medications. ondansetron 4 mg tablet,disintegrating 4 mg PO Q8H PRN (Reason: nausea and vomiting) Qty: 10 0RF Discharge Orders: Discharge ED (Routine); Ordered 12/07/24 Ordered By: Lisa Osborne Referrals: Angel Chauhan DO [Primary Care Provider] - Discharge Diet: Usual diet Discharge Activity: Increase activity as tolerated Patient Instructions: Syncope (ED), Opioid Safety, Pain Management Activity Restrictions/Additional Instructions: Thank you for choosing [facility] for your healthcare needs today. Please realize this is an emergency room and that we are providing you with a medical screening exam and this may not be complete and all inclusive of all the testing and or work up that you may need to determine your ailment or severity of your illness. You have been screened and evaluated and felt safe for discharge. Health conditions do change or evolve sometimes and as such it is important that you follow up with your Primary Doctor to be re checked, 3-5 days is a general good time frame for follow up. You are always welcome to return to the ED for re assessment if your symptoms are worsening or you have new concerns Print Language: Cape Verdean Coding Level of Care Code ED Policy Change Clerks Supervisor for Estiven Suárez
[2024-12-07 13:27] VITALS: BP 111/57; PULSE 82; RESP 22; O2SAT 98
[2024-12-07 13:57] VITALS: PULSE 78; RESP 16; O2SAT 15
[2024-12-07 14:27] VITALS: PULSE 59; RESP 15; O2SAT 99
[2024-12-07 14:57] VITALS: PULSE 66; RESP 21; O2SAT 99
--- NOTE | 2024-12-07 15:20 | ECG_ITS ---
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
--- NOTE | 2024-12-07 15:30 | PC.NURSE ---
pt was repeatedly getting up out of bed after this RN redirected her to stay in bed. she was pulling off monitoring. educated on the importance of keeping equipment connected.
[2024-12-07 15:37] LABS: Bacteria Urine None Seen /hpf; Bilirubin Urine Neg (Negative); Blood Urine Neg (Negative); Glucose Urine UA Norm (Normal); Hyaline Casts Urine 0-4 /lpf; Ketones Urine Negative (Negative); Leukocyte Esterase Urine Negative (Negative); Nitrate Urine Negative (Negative); Protein Urine Neg (Negative); RBC Urine 0-2 /hpf (0-2); Specific Gravity, Urine 1.005 (1.005-1.030); Squamous Epithelial Cell Urine 0-5 /hpf (0-5); Urine Appearance Clear (CLEAR); Urine Color Yellow (Yellow); Urobilinogen Urine Neg (Negative); WBC Urine 0-5 /hpf (0-5); pH Urine 6 (5-7)
[2024-12-07 16:29] LABS: Basophils % 0.6 %; Eosinophils # 0.2 10^3/uL (0.0-0.8); Eosinophils % 3.1 %; Hematocrit 38.1 % (36-47); Lymphocytes # 1.6 10^3/uL (0.8-4.8); Lymphocytes % 24.2 %; Mean Corpuscular HGB Conc 31.8 g/dL (30-55); Mean Corpuscular Hemoglobin 34.5 pg (27-33); Mean Corpuscular Volume 108.5 fl (85-98); Mean Platelet Volume 9.5 fL (7.4-10.4); Monocytes # 0.4 10^3/uL (0.2-0.9); Monocytes % 5.7 %; Neutrophils # 4.39 10^3/uL (1.8-7.7); Neutrophils % 65.7 %; Nucleated Red Blood Cells % 0 %; Platelet Count 251 10^3/cmm (157-399); Red Blood Count 3.51 10^6/uL (3.85-5.65); Red Cell Distribution Width 14.6 % (12.1-15.1); White Blood Count 6.69 10^3/uL (3.29-11.43)
[2024-12-07 16:47] LABS: Alanine Aminotransferase 19 U/L (0-33); Albumin Level 3.3 g/dL (3.5-5.2); Alkaline Phosphatase 188 U/L (35-105); Anion Gap 16.1 (5-19); Aspartate Amino Transferase 31 U/L (0-32); Blood Urea Nitrogen 16 mg/dL (8-23); Calcium 8.5 mg/dL (8.5-10.5); Carbon Dioxide 22 mmol/L (22-29); Chloride 104 mmol/L (98-107); Globulin 2.6 g/dL (1.3-4.6); Glucose 97 mg/dL (65-115); Lactic Sepsis W/Reflex 0.9 mmol/L (0.5-2.2); Osmolality Calculated 287 mOsm/kg (285-295); Potassium 4.1 mmol/L (3.5-5.1); Sodium 138 mmol/L (136-145); Total Bilirubin 1.1 mg/dL (0.15-1.2); Total Protein 5.9 g/dL (6.6-8.7); Troponin(5th) Baseline 10 ng/L (0-10)
[2024-12-07 17:50] VITALS: BP 136/97; PULSE 62; O2SAT 98
== END 2024-12-07 17:50 | disposition home or self-care (01) ==
PROVIDERS: Emergency Provider Emergency Medicine; PCP Family Medicine
DX: R55 Syncope and collapse (principal); E86.0 Dehydration
CPT/HCPCS: 71045; 80053; 81001; 83605; 84484; 85025; 87040; 93005; 99285

== ENCOUNTER → 2024-12-12 14:32 | Outpatient (BNVA) | payer MEDICARE, SELFPAY | PROVIDERS: PCP Family Medicine; Visit Provider Nurse Practitioner | DX: E03.9 Hypothyroidism, unspecified (principal) | CPT/HCPCS: 84443 ==

== ENCOUNTER 2024-12-14 16:21 | Emergency (ER) | payer MEDICARE, SELFPAY ==
[2024-12-14] VITALS (8 sets, daily range): BP systolic 155–207; BP diastolic 69–91; PULSE 70–98; RESP 17–21; TEMP 37.3; O2SAT 91–98; BMI 37.4
--- NOTE | 2024-12-14 16:47 | XRR_ITS ---
PROCEDURE INFORMATION: Exam: XR Chest Exam date and time: 12/14/2024 5:16 PM Age: 79 years old Clinical indication: Other: Weakness; Prior surgery; Surgery date: 6+ months; Surgery type: Heart monitor TECHNIQUE: Imaging protocol: Radiologic exam of the chest. Views: 1 view. COMPARISON: CR (CHEST, ) 12/07/2024 1:28 PM FINDINGS: Lungs: Unremarkable. No consolidation. Pleural spaces: Unremarkable. No pleural effusion. No pneumothorax. Heart/Mediastinum: Unremarkable. No cardiomegaly. Vasculature: Calcification of the thoracic aorta and/or great vessels consistent with atherosclerotic vessel disease. Bones/joints: Moderate thoracic spondylosis. XR/XR chest 1V portable [id number] IMPRESSION: No acute findings.
--- NOTE | 2024-12-14 16:49 | ECG_ITS ---
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 Measurements Intervals [place] Rate: 81 P: 62 SD: 181 QRS: 9 QRSD: 83 T: 39 QT: 374 QTc: 435 Interpretive Statements SINUS RHYTHM Compared to ECG 12/07/2024 15:18:55 Sinus bradycardia no longer present Electronically Signed On 12-14-2024 18:10:41 CDT by Gordon Brown M.D. [email or web address] [id number]
--- NOTE | 2024-12-14 16:50 | ED_ITS ---
HPI - Weakness 2 General: Chief complaint: Weakness Stated complaint: weakness Time Seen by Provider: 12/14/24 16:25 Source: patient Mode of arrival: EMS Limitations: no limitations History of Present Illness: This patient was transported from her home by EMS. She states that she feels weak and feels like she cannot get out of bed. She states when she pulls herself up and sits at the side of the bed she feels like she has no energy to get up and walk. She states has been going on most of today. She denies any focal weakness. She states she can move her arms or legs but just feels like she cannot bear her weight. She denies fevers or chills headache or other constitutional symptoms. She apparently has had several syncopal episodes over the past month or more 3 of which have required hospitalizations without any discernible etiology to her syncope according to what the patient has been told. Her current presentation was initiated after last evening she ate a meal of fried eggs and fried meat and states that shortly after that meal she became sick at her stomach and vomited. She states that she continues to feel somewhat nauseated and not hungry and so therefore has not had much to eat or drink today. She states that she has also not taken her normal blood pressure medicine etc. She has not had any history of palpitations ACS, cardiac procedures etc. She denies any diarrhea etc. No known exposure to infectious disease with cough congestion fever etc. MD Complaint: generalized weakness and lack of energy Associated symptoms: Reports nausea and vomiting; Denies chest pain, chills, dysuria, easy bruising, fever(s) or headache(s) Review of Systems 2 Const: Denies: fever(s) or chills Eyes: Denies: change in vision ENMT: Denies: throat pain, odynophagia, nasal discharge or nasal congestion Card: Denies: chest pain, palpitations or irregular heart rhythm Resp: Denies: dyspnea, productive cough or non-productive cough GI: Reports: nausea and vomiting; Denies: abdominal pain or diarrhea : Denies: flank pain, difficulty voiding or dysuria Musc: Denies: neck pain, back pain or extremity swelling Skin/Breast: Denies: rash Neuro: Denies: headache(s), numbness in extremities, weakness in extremities or vertigo Endo: Denies: polyuria or polydipsia Mario/Lymph: Denies: easy bruising or easy bleeding PFSH ED 2 PFSH: Social History Smoking and tobacco/nicotine status: never used tobacco/nicotine Physical Exam 2 Narrative: EXAM NARRATIVE: She makes good eye contact appears to be in no acute distress she was talking on her mobile phone when I entered the examination room. She is quite loquacious and answers all questions readily and in great detail. Const: COMMON NORMALS: no acute distress and patient oriented x3 GENERAL APPEARANCE: cooperative and comfortable NUTRITIONAL APPEARANCE: overweight HENMT: COMMON NORMALS: atraumatic, Normal nasal mucous membranes and turbinates present, moist oral mucous membranes and oropharynx normal HEAD & SCALP: atraumatic FACE & SINUS: face symmetric NOSE: Normal nasal mucous membranes and turbinates present Eye: COMMON NORMALS: Equal, round and reactive pupils present, EOMs intact bilaterally and conjunctivae normal CONJUNCTIVA: Yes conjunctivae normal P UPIL: Yes Equal, round and reactive pupils present Neck/C-Spine: COMMON NORMALS: full ROM, no JVD, Thyroid normal and No carotid bruits THYROID: Thyroid normal Chest: COMMONS NORMALS: normal inspection of the chest Resp: COMMON NORMALS: normal respiratory effort, No use of accessory muscles and clear to auscultation bilaterally AUSCULTATION: clear to auscultation bilaterally Cardio: COMMON NORMALS: no JVD, regular rate, regular rhythm, No murmurs present (Cardio) and Peripheral pulses 2+ throughout RATE: regular rate R HYTHM: regular rhythm PERIPHERAL PULSES: Peripheral pulses 2+ throughout GI: COMMON NORMALS: Normal to inspection, nondistended, normoactive bowel sounds present, Soft to palpation, non-tender and No hepatosplenomegaly present PALPATION: Yes Soft to palpation and Yes No hepatosplenomegaly present Back/Pelvis: COMMON NORMALS: thoracic and lumbar spine normal to inspection, no thoracic nor lumbar tenderness and thoraco-lumbar ROM normal Extremity: COMMON NORMALS: normal to inspection, full ROM, capillary refill normal, no joint enlargement, no clubbing, cyanosis or edema, no calf tenderness and no pedal edema Neuro: COMMON NORMALS: patient oriented x3, moves all extremities, no focal motor deficits and no sensory deficits noted CRANIAL NERVES: Yes CN normal except as noted Psych: COMMON NORMALS: mental status grossly normal Skin: COMMON NORMALS: no rashes or lesions noted, no wounds and turgor normal GENERAL SKIN EXAM: no rashes or lesions noted and turgor normal Course 2 Reevaluation(s): Reevaluation #1: The patient was reevaluated. She clinically is doing well and stable. She was allowed to ambulate which she did quite well unaided displaying normal gait and normal strength. No evidence at this time of an ongoing emergency medical condition she will be discharged home to outpatient follow-up. Will also recommend that she start taking magnesium 400 mg daily to keep continued to keep her magnesium repleted and reduce the risk of ongoing hypokalemia. Time: 20:23 Vital Signs: Vital signs: Vital Signs Temperature 99.1 F 12/14/24 16:22 Pulse Rate 77 12/14/24 19:41 Respiratory Rate 18 12/14/24 19:41 Blood Pressure 164/80 12/14/24 19:41 Pulse Oximetry 95 12/14/24 19:41 Oxygen Delivery Me thod Room Air 12/14/24 19:41 MDM - Weakness Medical Decision Making Patient presents as noted in history of present illness with generalized weakness and feeling like she does not have the strength to get out of bed and ambulate. No focal weakness history. No falls associated with her current symptoms. Clinical exam did not reveal any focal findings of concern such as focal weakness etc. Therefore laboratory evaluation was engaged to ensure that there was no other potential etiology. It was noted that her potassium was low as well as her magnesium. These were repleted as well as she was given IV hydration while in the emergency department. Also noted but not addressed during the emergency department stay was that her hemoglobin has fallen over the past months. She has a macrocytic anemia which may be due to a BD12 deficiency or perhaps alcohol use. Again this is not an acute issue and not to the point where it is a factor that needs to be addressed urgently but it would does need to be followed up and she was recommended to be followed up in her primary care office for repeat CBC B12 folate levels etc. she is stable at this time to be discharged home to outpatient care. Lab Data I reviewed the patient's lab results. 12/14/24 17:20 12/14/24 17:20 Radiology Impressions Chest X-Ray 12/14/24 16:47 IMPRESSION: No acute findings. ADDENDUM: 12/14/24 1751 Bones/joints findings: Stable healed left humeral head and neck fracture. Laboratory Results WBC 10.27 10^3/uL (3.29-11.43) 12/14/24 17:20 RBC 3.44 10^6/uL (3.85-5.65) L 12/14/24 17:20 Hgb 11.90 g/dL (11.27-16.99) 12/14/24 17:20 Hct 35.6 % (36-47) L 12/14/24 17:20 MCV 103.5 fl (85-98) H 12/14/24 17:20 MCH 34.6 pg (27-33) H 12/14/24 17:20 MCHC 33.4 g/dL (30-55) 12/14/24 17:20 RDW 14.0 % (12.1-15.1) 12/14/24 17:20 Plt Count 196 10^3/cmm (157-399) 12/14/24 17:20 MPV 9.4 fL (7.4-10.4) 12/14/24 17:20 Neut % (Auto) 69.8 % 12/14/24 17:20 Lymph % (Auto) 19.7 % 12/14/24 17:20 [place] % (Auto) 8.3 % 12/14/24 17:20 Eos % (Auto) 1.4 % 12/14/24 17:20 Baso % (Auto) 0.3 % 12/14/24 17:20 Neut # (Auto) 7.18 10^3/uL (1.8-7.7) 12/14/24 17:20 Lymph # (Auto) 2.0 10^3/uL (0.8-4.8) 12/14/24 17:20 [place] # (Auto) 0.9 10^3/uL (0.2-0.9) 12/14/24 17:20 Eos # (Auto) 0.1 10^3/uL (0.0-0.8) 12/14/24 17:20 Baso # (Auto) 0.0 10^3/uL (0.0-0.1) 12/14/24 17:20 Nucleated RBC % (auto) 0 % 12/14/24 17:20 Nucleated RBCs # 0.0 /100WBC 12/14/24 17:20 Sodium 137 mmol/L (136-145) 12/14/24 17:20 Potassium 3.1 mmol/L (3.5-5.1) L 12/14/24 17:20 Chloride 100 mmol/L (98-107) 12/14/24 17:20 Carbon Dioxide 24 mmol/L (22-29) 12/14/24 17:20 Anion Gap 16.1 (5-19) 12/14/24 17:20 BUN 9 mg/dL (8-23) 12/14/24 17:20 Creatinine 0.5 mg/dL (0.5-0.9) 12/14/24 17:20 GFR Calculation Not Reportable 12/14/24 17:20 Glucose 103 mg/dL (65-115) 12/14/24 17:20 Calculated Osmolality 283 mOsm/kg (285-295) L 12/14/24 17:20 Calcium 9.2 mg/dL (8.5-10.5) 12/14/24 17:20 Magnesium 1.2 mg/dL (1.7-2.3) L 12/14/24 17:20 Total Bilirubin 1.2 mg/dL (0.15-1.2) 12/14/24 17:20 AST 29 U/L (0-32) 12/14/24 17:20 ALT 19 U/L (0-33) 12/14/24 17:20 Alkaline Phosphatase 166 U/L (35-105) H 12/14/24 17:20 Total Protein 6.2 g/dL (6.6-8.7) L 12/14/24 17:20 Albumin 3.3 g/dL (3.5-5.2) L 12/14/24 17:20 Globulin 2.9 g/dL (1.3-4.6) 12/14/24 17:20 TSH 0.76 uIU/mL (0.27-4.20) 12/14/24 17:20 Urine Color Yellow (Yellow) 12/14/24 17:28 Urine Appearance Clear (CLEAR) 12/14/24 17:28 Urine pH 6 (5-7) 12/14/24 17:28 Ur Specific [place] 1.010 (1.005-1.030) 12/14/24 17:28 Urine Protein Neg (Negative) 12/14/24 17:28 Urine Glucose (UA) Norm (Normal) 12/14/24 17:28 Urine Ketones Negative (Negative) 12/14/24 17:28 Urine Blood 2+ (Negative) H 12/14/24 17:28 Urine Nitrate Negative (Negative) 12/14/24 17:28 Urine Bilirubin Neg (Negative) 12/14/24 17:28 Urine Urobilinogen Neg mg/dL (Negative) 12/14/24 17:28 Ur Leukocyte Esterase Negative (Negative) 12/14/24 17:28 Urine RBC 0-2 /hpf (0-2) 12/14/24 17:28 Urine WBC 0-5 /hpf (0-5) 12/14/24 17: Ur Squamous Epith Cells 0-5 /hpf (0-5) 12/14/24 17:28 Amorphous Sediment Not Reportable 12/14/24 17:28 Urine Bacteria None seen /hpf (NONE) 12/14/24 17: Hyaline Casts 0.40 /lpf 12/14/24 17:28 All radiology interpretation(s) finalized by discharge EKG Data EKG 1: I personally reviewed and interpreted this EKG as follows: Interpretation: Resting EKG reveals ventricular rate of 81 bpm consistent with sinus rhythm. Normal UT interval, QRS duration, corrected to QT interval. Normal axis. No acute ST-T wave changes noted. Discharge Plan Discharge Patient Disposition: Home Clinical Impression: Hypokalemia, Hypomagnesemia Anemia Qualifiers: Anemia type: unspecified type Qualified Code(s): D64.9 - Anemia, unspecified Condition: Stable Prescriptions: No Action tizanidine 4 mg tablet 4 mg PO TID PRN (Reason: muscle spasms) ibuprofen 200 mg tablet 200 mg PO Q6H PRN carboxymethylcellulose sodium [Refresh Tears] 0.5 % drops 1 drp ophthalmic (eye) BID docusate sodium [Colace] 100 mg capsule 100 mg PO DAILY Allergy Relief (cetirizine) 10 mg capsule 10 mg PO DAILY PRN vitamin E (dl, acetate) 180 mg (400 unit) capsule 180 mg PO DAILY lisinopril 20 mg tablet 20 mg PO DAILY Qty: 30 3RF hydroxyzine HCl 10 mg tablet 10 mg PO BID PRN (Reason: anxiety) Qty: 60 0RF levothyroxine 75 mcg tablet 75 mcg PO DAILY allopurinol 300 mg tablet 300 mg PO DAILY hydrochlorothiazide 25 mg tablet 25 mg PO DAILY polyethylene glycol 3350 [Miralax] 17 gram/dose powder 17 g PO DAILY Qty: 510 0RF Rx Instructions: Take 1 scoop daily while taking pain medications. ondansetron 4 mg tablet,disintegrating 4 mg PO Q8H PRN (Reason: nausea and vomiting) Qty: 10 0RF Discharge Orders: Discharge ED (Routine); Ordered 12/14/24 Ordered By: Antonio Batista Referrals: Angel Chauhan DO [Primary Care Provider] - 2 weeks (Macrocytic anemia) Discharge Diet: Usual diet Discharge Activity: Resume usual activity Patient Instructions: Opioid Safety, Pain Management Activity Restrictions/Additional Instructions: As we discussed while you are in the emergency department your salts in your blood specifically your potassium and your magnesium were low which may be a contributing factor to your sensation of weakness. We recommend that you take [id number] magnesium 400 mg daily. You should do this continuously. You should also ensure that you drink at least 2 quarts of fluid daily and eat a balanced diet. You also have a mild anemia that has progressed over the past several months and you should follow-up with your primary care doctor in the next 2 weeks for recheck of your blood count and other test to evaluate your anemia. If you develop any new or worsening symptoms or any other concerns you are welcome to return to the emergency department otherwise follow-up with your regular doctor for your ongoing care. Print Language: Faroese Coding Level of Care Code ED Director [facility] Related Data Home Medications ?Medication ?Instructions ?Recorded ?Confirmed allopurinol 300 mg tablet 300 mg PO DAILY 11/25/2412/03 hydrochlorothiazide 25 mg tablet 25 mg PO DAILY 12/07/24 levothyroxine 75 mcg tablet 75 mcg PO DAILY 11/25/24 0 12/12/24 tizanidine 4 mg tablet 4 mg PO TID PRN muscle spasm s 11/25/24 12/12/24 carboxymethylcellulose sodium 0.5 1 drp ophthalmic (ey e) BID 12/12/24 12/12/24 % eye drops (Refresh Tears) cetirizine 10 mg capsule (Allergy 10 mg PO DAILY PRN 0 12/12/24 12/12/24 Relief (cetirizine)) docusate sodium 100 mg capsule 100 mg PO DAILY 5 12/12/24 (Colace) ibuprofen 200 mg tablet 200 mg PO Q6H PRN 12/12/24 0 12/12/24 vitamin E (dl, acetate) 180 mg 180 mg PO DAILY 5 12/12/24 (400 unit) capsule Previous Rx's ?Medication ?Instructions ?Recorded ondansetron 4 mg disintegrating 4 mg PO Q8H PRN nausea and 11/15/24 tablet vomiting #10 tabs polyethylene glycol 3350 17 17 g PO DAILY #510 grams 0 11/15/24 gram/dose oral powder (Miralax) hydroxyzine HCl 10 mg tablet 10 mg PO BID PRN anxiety #60 tabs 12/03/24 lisinopril 20 mg tablet 20 mg PO DAILY #30 tabs 0412/03 Allergies Allergy/AdvReac Type Severity Reaction Status Date / Time morphine Allergy ALGY-Hives Verified 12/12/24 10:52
[2024-12-14] MEDS: lactated ringers 1,000 ML 999 ML IV (16:58)
[2024-12-14] MEDS: lisinopril 20 mg Tablet PO (17:02)
[2024-12-14 17:27] LABS: Basophils % 0.3 %; Eosinophils # 0.1 10^3/uL (0.0-0.8); Eosinophils % 1.4 %; Hematocrit 35.6 % (36-47); Lymphocytes % 19.7 %; Mean Corpuscular HGB Conc 33.4 g/dL (30-55); Mean Corpuscular Hemoglobin 34.6 pg (27-33); Mean Corpuscular Volume 103.5 fl (85-98); Mean Platelet Volume 9.4 fL (7.4-10.4); Monocytes # 0.9 10^3/uL (0.2-0.9); Monocytes % 8.3 %; Neutrophils # 7.18 10^3/uL (1.8-7.7); Neutrophils % 69.8 %; Nucleated Red Blood Cells % 0 %; Platelet Count 196 10^3/cmm (157-399); Red Blood Count 3.44 10^6/uL (3.85-5.65); White Blood Count 10.27 10^3/uL (3.29-11.43)
[2024-12-14 17:32] LABS: Add Urine Microscopic? NO
[2024-12-14 17:33] LABS: Bilirubin Urine Neg (Negative); Blood Urine 2+ (Negative); Glucose Urine UA Norm (Normal); Ketones Urine Negative (Negative); Leukocyte Esterase Urine Negative (Negative); Nitrate Urine Negative (Negative); Protein Urine Neg (Negative); Urine Appearance Clear (CLEAR); Urine Color Yellow (Yellow); Urobilinogen Urine Neg (Negative); pH Urine 6 (5-7)
[2024-12-14 17:34] LABS: Charge for UA Resulting for Rev
[2024-12-14 17:36] LABS: Bacteria Urine None Seen /hpf; RBC Urine 0-2 /hpf (0-2); Squamous Epithelial Cell Urine 0-5 /hpf (0-5); WBC Urine 0-5 /hpf (0-5)
[2024-12-14 17:53] LABS: Alanine Aminotransferase 19 U/L (0-33); Albumin Level 3.3 g/dL (3.5-5.2); Alkaline Phosphatase 166 U/L (35-105); Aspartate Amino Transferase 29 U/L (0-32); Blood Urea Nitrogen 9 mg/dL (8-23); Calcium 9.2 mg/dL (8.5-10.5); Carbon Dioxide 24 mmol/L (22-29); Chloride 100 mmol/L (98-107); Creatinine Clr Calc Pharmacy 75.4841; Globulin 2.9 g/dL (1.3-4.6); Glucose 103 mg/dL (65-115); Magnesium 1.2 mg/dL (1.7-2.3); Osmolality Calculated 283 mOsm/kg (285-295); Sodium 137 mmol/L (136-145); Thyroid Stimulating Hormone 0.76 uIU/mL (0.27-4.20); Total Bilirubin 1.2 mg/dL (0.15-1.2); Total Protein 6.2 g/dL (6.6-8.7)
[2024-12-14 17:54] LABS: Anion Gap 16.1 (5-19); Potassium 3.1 mmol/L (3.5-5.1)
[2024-12-14] MEDS: potassium bicarb 25 mEq Tablet 50 MEQ PO (19:08)
[2024-12-14] MEDS: magnesium sulfate premix 2 GM/50 ML PIGGYBACK IV (19:10)
== END 2024-12-14 22:05 | disposition home or self-care (01) ==
PROVIDERS: Emergency Provider Emergency Medicine; PCP Family Medicine
DX: E87.6 Hypokalemia (principal); E83.42 Hypomagnesemia; D64.9 Anemia, unspecified
CPT/HCPCS: 36415; 71045; 80053; 81003; 83735; 84443; 85025; 87040; 93005; 96365; 99285; J3475; J7120; J9999

== ENCOUNTER → 2024-12-16 09:08 | Outpatient (BNVA) | payer MEDICARE, SELFPAY | PROVIDERS: PCP Family Medicine; Visit Provider Orthopaedic Surgery | DX: S42.292D Other displaced fracture of upper end of left humerus, subsequent encounter for fracture with routine healing (principal); X58.XXXD Exposure to other specified factors, subsequent encounter | CPT/HCPCS: 73030; 99213 ==

== ENCOUNTER → 2024-12-30 11:39 | Outpatient (BNVA) | payer MEDICARE, SELFPAY | PROVIDERS: PCP Family Medicine; Visit Provider Orthopaedic Surgery | DX: S42.292D Other displaced fracture of upper end of left humerus, subsequent encounter for fracture with routine healing (principal); X58.XXXD Exposure to other specified factors, subsequent encounter | CPT/HCPCS: 73030; 99213 ==

== ENCOUNTER 2025-01-09 05:00 | Outpatient (RCR) | payer MEDICARE, SELFPAY | END 2025-02-08 23:59 | disposition home or self-care (01) | LOC: MPT 05:00 | PROVIDERS: Visit Provider Orthopaedic Surgery | DX: S42.209D Unspecified fracture of upper end of unspecified humerus, subsequent encounter for fracture with routine healing (principal); X58.XXXD Exposure to other specified factors, subsequent encounter | CPT/HCPCS: 97110; 97140; 97162 ==

== ENCOUNTER → 2025-01-15 14:36 | Outpatient (BNVA) | payer MEDICARE, SELFPAY | PROVIDERS: PCP Family Medicine; Visit Provider Nurse Practitioner | DX: E87.6 Hypokalemia (principal); R79.0 Abnormal level of blood mineral | CPT/HCPCS: 83735; 84132 ==

== ENCOUNTER → 2025-01-30 09:08 | Outpatient (BNVA) | payer MEDICARE, SELFPAY | PROVIDERS: PCP Family Medicine; Visit Provider Nurse Practitioner | DX: I10 Essential (primary) hypertension (principal); E03.9 Hypothyroidism, unspecified | CPT/HCPCS: 83735 ==

== ENCOUNTER → 2025-02-05 13:08 | Outpatient (BNVA) | payer MEDICARE, SELFPAY | PROVIDERS: PCP Family Medicine; Visit Provider Internal Medicine | DX: R55 Syncope and collapse (principal); R07.9 Chest pain, unspecified; I10 Essential (primary) hypertension; I65.29 Occlusion and stenosis of unspecified carotid artery; I65.23 Occlusion and stenosis of bilateral carotid arteries; R06.02 Shortness of breath | CPT/HCPCS: 99204 ==

== ENCOUNTER → 2025-02-06 15:31 | Outpatient (BNVA) | payer MEDICARE, SELFPAY | PROVIDERS: PCP Family Medicine; Visit Provider Orthopaedic Surgery | DX: S42.292D Other displaced fracture of upper end of left humerus, subsequent encounter for fracture with routine healing (principal); X58.XXXD Exposure to other specified factors, subsequent encounter | CPT/HCPCS: 73030; 99213 ==

== ENCOUNTER 2025-02-09 05:00 | Outpatient (RCR) | payer MEDICARE, SELFPAY | END 2025-03-10 23:59 | disposition home or self-care (01) | LOC: MPT 05:00 | PROVIDERS: PCP Family Medicine; Visit Provider Orthopaedic Surgery | DX: S42.209D Unspecified fracture of upper end of unspecified humerus, subsequent encounter for fracture with routine healing (principal); X58.XXXD Exposure to other specified factors, subsequent encounter | CPT/HCPCS: 97110 ==

== ENCOUNTER 2025-02-21 09:22 | Outpatient (CLI) | payer MEDICARE, SELFPAY ==
--- NOTE | 2025-02-21 | ECG_ITS ---
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 Interpretive Statements Lung unchanged pre/post procedure; Intraprocedure shortess of breath; Symptoms resoled by discharge PROCEDURE: At the baseline, the EKG revealed normal sinus rhythm with a poor R wave progression.. The baseline heart was 60 bpm with a blood pressue of 189/90 mm of Hg Lexiscan was infused over a period of 20 seconds. A total of 0.4 milligrams of Lexiscan was infused. The stress phase was continued for a total of 5 minutes. Heart rate at the end of the stress phase was 81 bpm with a blood pressure 199/82 mm of Hg. The EKG at the peak infusion revealed no significant changes. Sestamibi was injected 20 seconds after the Lexiscan infusion. Heart rate at the end of the recovery phase was 66 bpm with a blood pressure of 193/93 mm of Hg. CONCLUSION: 1. No significant EKG changes with the LexiScan infusion 2. No LexiScan induced chest pain or cardiac arrhythmia 3. Normal blood pressure and heart rate response 4. Sestamibi/sestamibi perfusion scan pending; see separate report. Electronically Signed On 02-21-2025 21:56:05 CDT by Сергей Ruvalcaba M.D. [email or web address]
[2025-02-21 09:44] VITALS: BMI 39.6
--- NOTE | 2025-02-21 10:19 | NMCV_ITS ---
NM faustina perf SPECT r/s* [id number] February Age: 79 Gender: F : 1945 Exam Date: 02/21/2025 10:26 Ordering Phys: Gordon Brown M.D ([email or web address]) Technologist: HODA Edwards Exam Location: [facility] Indications: cp STRESS TEST [facility] IMAGE PROTOCOL Rest/Stress 1 Lexiscan Day Radiopharmaceutical Dose (mCi) Administration Site Administered by Rest: Tc-99m 10.5 IV Sandra Mendenhall SUPERVISOR HOME ENERGY CONSULTANT Sestamibi Stress:Tc-99m 32.7 IV Sandra Davidgle, SUPERVISOR HOME ENERGY CONSULTANT Sestamibi Rest: 21-Feb-2025 60 Discovery 630 Stress: 21-Feb-2025 30 Discovery 630 0.4mg Lexiscan. Supine position only as patient was unable to lay prone. SPECT RESULTS Technical Quality: Good Raw Data Analysis: Normal Image Corrections: No attenuation or motion correction applied Summed Stress Score: 1 Summed Rest Score: 0 Summed Difference Score: 1 PERFUSION FINDINGS A very small area of slightly decreased tracer uptake was noted on the AP lateral region. Reversibility was noted in this area. FUNCTIONAL RESULTS (calculated via Gated SPECT) Stress Image LV EF (%): 71 Stress EDV (mL):65 TID: 0.72 Stress ESV (mL):19 FUNCTIONAL FINDINGS: Segmental wall motion analysis revealing no gross wall motion abnormalities IMPRESSIONS 1. Myocardial perfusion imaging revealing a very small area of reversible defect in the apical lateral region suggestive of ischemia in the distribution of the left circumflex artery. 2. Normal LV ejection fraction of 71%. 3. LV wall motion analysis revealing no gross wall motion abnormalities. 4. Normal LV volume. No similar previous studies are available for comparison. Dr Сергей Ruvalcaba MD FAC (Electronically Signed) Final Date: 21 February 2025 14:19 S
[2025-02-21] MEDS: regadenoson 0.4 Mg/5 ml Syringe IVP (11:20)
== END 2025-02-21 09:23 | disposition home or self-care (01) ==
LOC: CDL 09:25
PROVIDERS: PCP Nurse Practitioner; Visit Provider Internal Medicine
DX: R07.9 Chest pain, unspecified (principal)
CPT/HCPCS: 36415; 78452; 96374; A9500; J2785

== ENCOUNTER 2025-02-28 14:30 | Emergency (ER) | payer MEDICARE, SELFPAY ==
[2025-02-28] VITALS (7 sets, daily range): BP systolic 168–216; BP diastolic 79–110; PULSE 70–88; RESP 16–20; TEMP 36.9; O2SAT 96–98
[2025-02-28 15:17] LABS: Basophils % 0.7 %; Eosinophils # 0.3 10^3/uL (0.0-0.8); Eosinophils % 4.5 %; Hematocrit 38.3 % (36-47); Lymphocytes # 1.9 10^3/uL (0.8-4.8); Lymphocytes % 33.4 %; Mean Corpuscular HGB Conc 32.9 g/dL (30-55); Mean Corpuscular Hemoglobin 34.7 pg (27-33); Mean Corpuscular Volume 105.5 fl (85-98); Mean Platelet Volume 9.5 fL (7.4-10.4); Monocytes # 0.4 10^3/uL (0.2-0.9); Monocytes % 7.6 %; Neutrophils # 3.08 10^3/uL (1.8-7.7); Neutrophils % 53.5 %; Nucleated Red Blood Cells % 0 %; Platelet Count 213 10^3/cmm (157-399); Red Blood Count 3.63 10^6/uL (3.85-5.65); White Blood Count 5.77 10^3/uL (3.29-11.43)
[2025-02-28 15:39] LABS: Alanine Aminotransferase 23 U/L (0-33); Albumin Level 3.6 g/dL (3.5-5.2); Alkaline Phosphatase 219 U/L (35-105); Anion Gap 16.5 (5-19); Aspartate Amino Transferase 43 U/L (0-32); Blood Urea Nitrogen 12 mg/dL (8-23); Calcium 8.9 mg/dL (8.5-10.5); Carbon Dioxide 23 mmol/L (22-29); Chloride 103 mmol/L (98-107); Creatinine Clr Calc Pharmacy 80.1233; Globulin 3.5 g/dL (1.3-4.6); Glucose 125 mg/dL (65-115); Osmolality Calculated 289 mOsm/kg (285-295); Potassium 3.5 mmol/L (3.5-5.1); Sodium 139 mmol/L (136-145); Total Protein 7.1 g/dL (6.6-8.7)
--- NOTE | 2025-02-28 16:30 | W.ED.GENADLT ---
Documented by User: PINO Boggs 02/28/25 16:42 HPI - General Adult General: Chief complaint: General Medical Stated complaint: high BP Time Seen by Provider: 02/28/25 14:45 Source: patient Mode of arrival: ambulatory Limitations: no limitations History of Present Illness: Patient is a 79-year-old female presents to ED today after she was sent here from the [facility] due to hypertension. She states she went to the clinic following a dog bite. They placed her on antibiotics and sent her to the emergency department after systolic blood pressure readings in the clinic were over 200. Patient states she has a longstanding history of hypertension. States she normally takes 40 mg of lisinopril in the mornings. She states she did not take this medication today. She admittedly has been very overwhelmed with several personal issues. She arrives here asymptomatic. She has not complained of a headache, visual changes, chest pain. She admittedly does not take her blood pressure routinely at home. Onset (ago): hour(s) Relieving factors: none Exacerbating factors: none Associated symptoms: Deny chest pain, dyspnea, headache(s), malaise, rash, palpitations or syncope Treatments prior to arrival: none Related Data Home Medications ?Medication ?Instructions ?Recorded ?Confirmed allopurinol 300 mg tablet 300 mg PO DAILY 11/25/24 02/28/25 levothyroxine 75 mcg tablet 75 mcg PO DAILY 11/25/24 02/28/25 tizanidine 4 mg tablet 4 mg PO TID PRN muscle spasms 11/25/24 02/28/25 carboxymethylcellulose sodium 0.5 1 drp ophthalmic (eye) BID 12/12/24 02/28/25 % eye drops (Refresh Tears) cetirizine 10 mg capsule (Allergy 10 mg PO DAILY PRN 12/12/24 02/28/25 Relief (cetirizine)) docusate sodium 100 mg capsule 100 mg PO DAILY 12/12/24 02/28/25 (Colace) ibuprofen 200 mg tablet 200 mg PO Q6H PRN 12/12/24 02/28/25 vitamin E (dl, acetate) 180 mg 180 mg PO DAILY 12/12/24 02/28/25 (400 unit) capsule Magnesium as directed 01/15/25 02/28/25 Potassium as directed 01/15/25 02/28/25 hydrochlorothiazide 25 mg tablet 25 mg PO DAILY PRN 02/05/25 02/28/25 Previous Rx's ?Medication ?Instructions ?Recorded ondansetron 4 mg disintegrating 4 mg PO Q8H PRN nausea and 11/15/24 tablet vomiting #10 tabs polyethylene glycol 3350 17 17 g PO DAILY #510 grams 11/15/24 gram/dose oral powder (Miralax) hydroxyzine HCl 10 mg tablet 10 mg PO BID PRN anxiety #60 tabs 12/03/24 lisinopril 20 mg tablet 20 mg PO DAILY #30 tabs 12/12/24 amoxicillin 875 mg-potassium 1 tab PO BID #14 tabs 02/28/25 clavulanate 125 mg tablet clonidine HCl 0.1 mg tablet 0.1 mg PO Q8H PRN blood pressure 02/28/25 #20 tabs Allergies Allergy/AdvReac Type Severity Reaction Status Date / Time morphine Allergy ALGY-Hives Verified 02/28/25 13:15 Review of Systems Const: Denies: fever(s), chills, body aches, fatigue or malaise Card: Denies: chest pain, palpitations, edema, lightheadedness, syncope or pre-syncope Resp: Denies: dyspnea GI: Denies: abdominal pain Musc: Denies: neck pain, back pain, extremity pain, extremity swelling, joint swelling or joint redness Skin/Breast: Denies: rash Neuro: Denies: headache(s), numbness in extremities, weakness in extremities, sensory changes or dizziness [facility] ED PFSH: Social History Smoking and tobacco/nicotine status: never used tobacco/nicotine Physical Exam Const: COMMON NORMALS: no acute distress, average body habitus, patient oriented x3, no limitations, healthy appearing, alert and well nourished GENERAL APPEARANCE: cooperative and anxious ORIENTATION/CONSCIOUSNESS: Yes awake, Yes oriented to person, Yes oriented to place and Yes oriented to time HENMT: COMMON NORMALS: normocephalic and atraumatic HEAD & SCALP: normal to inspection, normocephalic and atraumatic FACE & SINUS: normal facial exam Eye: GENERAL EYE: appearance normal, both eyes and all related structures Resp: COMMON NORMALS: normal respiratory effort and clear to auscultation bilaterally AUSCULTATION: clear to auscultation bilaterally Cardio: COMMON NORMALS: regular rate and regular rhythm RATE: regular rate RHYTHM: regular rhythm GI: COMMON NORMALS: Soft to palpation and no masses PALPATION: Yes Soft to palpation Extremity: GENERAL: Yes normal exam except as noted Neuro: EDVIN COMA SCALE: document GCS findings Edvin coma scale eye opening: Spontaneous Purdys coma scale verbal response: Orientated Purdys coma scale motor response: Obey commands Purdys coma scale total score: 15 COMMON NORMALS: patient oriented x3, CN's II-XII intact bilaterally, moves all extremities, no focal motor deficits, no sensory deficits noted and gait normal SENSORIUM/ORIENTATION: Yes alert, Yes oriented to person, Yes oriented to place and Yes oriented to time Skin: COMMON NORMALS: no rashes or lesions noted GENERAL SKIN EXAM: no rashes or lesions noted Course Vital Signs: Vital signs: Vital Signs Temperature 98.4 F 02/28/25 14:31 Pulse Rate 88 02/28/25 18:00 Respiratory Rate 20 H 02/28/25 17:30 Blood Pressure 168/88 02/28/25 18:00 Pulse Oximetry 96 02/28/25 18:00 Oxygen Delivery Me thod Room Air 02/28/25 18:00 MDM - General Adult Lab Data 02/28/25 15:10 02/28/25 15:10 Laboratory Results WBC 5.77 10^3/uL (3.29-11.43) 02/28/25 15:10 RBC 3.63 10^6/uL (3.85-5.65) L 02/28/25 15:10 Hgb 12.60 g/dL (11.27-16.99) 02/28/25 15:10 Hct 38.3 % (36-47) 02/28/25 15:10 MCV 105.5 fl (85-98) H 02/28/25 15:10 MCH 34.7 pg (27-33) H 02/28/25 15:10 MCHC 32.9 g/dL (30-55) 02/28/25 15:10 RDW 15.0 % (12.1-15.1) 02/28/25 15:10 Plt Count 213 10^3/cmm (157-399) 02/28/25 15:10 MPV 9.5 fL (7.4-10.4) 02/28/25 15:10 Neut % (Auto) 53.5 % 02/28/25 15:10 Lymph % (Auto) 33.4 % 02/28/25 15:10 Dickinson % (Auto) 7.6 % 02/28/25 15:10 Eos % (Auto) 4.5 % 02/28/25 15:10 Baso % (Auto) 0.7 % 02/28/25 15:10 Neut # (Auto) 3.08 10^3/uL (1.8-7.7) 02/28/25 15:10 Lymph # (Auto) 1.9 10^3/uL (0.8-4.8) 02/28/25 15:10 Dickinson # (Auto) 0.4 10^3/uL (0.2-0.9) 02/28/25 15:10 Eos # (Auto) 0.3 10^3/uL (0.0-0.8) 02/28/25 15:10 Baso # (Auto) 0.0 10^3/uL (0.0-0.1) 02/28/25 15:10 Nucleated RBC % (auto) 0 % 02/28/25 15:10 Nucleated RBCs # 0.0 /100WBC 02/28/25 15:10 Sodium 139 mmol/L (136-145) 02/28/25 15:10 Potassium 3.5 mmol/L (3.5-5.1) 02/28/25 15:10 Chloride 103 mmol/L (98-107) 02/28/25 15:10 Carbon Dioxide 23 mmol/L (22-29) 02/28/25 15:10 Anion Gap 16.5 (5-19) 02/28/25 15:10 BUN 12 mg/dL (8-23) 02/28/25 15:10 Creatinine 0.5 mg/dL (0.5-0.9) 02/28/25 15:10 GFR Calculation Not Reportable 02/28/25 15:10 Glucose 125 mg/dL (65-115) H 02/28/25 15:10 Calculated Osmolality 289 mOsm/kg (285-295) 02/28/25 15:10 Calcium 8.9 mg/dL (8.5-10.5) 02/28/25 15:10 Total Bilirubin 1.0 mg/dL (0.15-1.2) 02/28/25 15:10 AST 43 U/L (0-32) H 02/28/25 15:10 ALT 23 U/L (0-33) 02/28/25 15:10 Alkaline Phosphatase 219 U/L (35-105) H 02/28/25 15:10 Total Protein 7.1 g/dL (6.6-8.7) 02/28/25 15:10 Albumin 3.6 g/dL (3.5-5.2) 02/28/25 15:10 Globulin 3.5 g/dL (1.3-4.6) 02/28/25 15:10 Discharge Plan Discharge Patient Disposition: Home Clinical Impression: Essential hypertension Condition: Stable Prescriptions: New clonidine HCl 0.1 mg tablet 0.1 mg PO Q8H PRN (Reason: blood pressure) Qty: 20 0RF Rx Instructions: for blood pressure >200 systolic or >100 diastolic No Action tizanidine 4 mg tablet 4 mg PO TID PRN (Reason: muscle spasms) ibuprofen 200 mg tablet 200 mg PO Q6H PRN carboxymethylcellulose sodium [Refresh Tears] 0.5 % drops 1 drp ophthalmic (eye) BID docusate sodium [Colace] 100 mg capsule 100 mg PO DAILY Allergy Relief (cetirizine) 10 mg capsule 10 mg PO DAILY PRN vitamin E (dl, acetate) 180 mg (400 unit) capsule 180 mg PO DAILY lisinopril 20 mg tablet 20 mg PO DAILY Qty: 30 3RF amoxicillin-pot clavulanate 875-125 mg tablet 1 tab PO BID Qty: 14 0RF hydroxyzine HCl 10 mg tablet 10 mg PO BID PRN (Reason: anxiety) Qty: 60 0RF Magnesium as directed Potassium as directed levothyroxine 75 mcg tablet 75 mcg PO DAILY allopurinol 300 mg tablet 300 mg PO DAILY hydrochlorothiazide 25 mg tablet 25 mg PO DAILY PRN polyethylene glycol 3350 [Miralax] 17 gram/dose powder 17 g PO DAILY Qty: 510 0RF Rx Instructions: Take 1 scoop daily while taking pain medications. ondansetron 4 mg tablet,disintegrating 4 mg PO Q8H PRN (Reason: nausea and vomiting) Qty: 10 0RF Discharge Orders: Discharge ED (Routine); Ordered 02/28/25 Ordered By: Fanny Alba Referrals: Edelmira Hernandez FNP [Primary Care Provider, Nurse Practitioner] Discharge Diet: Low Salt Discharge Activity: Increase activity as tolerated Patient Instructions: DASH Eating Plan (ED), Hypertension (ED) Activity Restrictions/Additional Instructions: Low-salt diet as described in information above. Follow-up with your primary care provider regarding better blood pressure control Only take the clonidine as needed if blood pressure is greater than 200 on the top number or greater than 100 on the bottom number. Follow up with your primary care provider. Is important to coordinate your blood pressure through your primary care and have follow-up. Print Language: French Coding Level of Care Code ED Maintenance Supervisor 2Nd Shift for Chg Fwd Documented by User: PINO Helm 02/28/25 18:12 HPI - General Adult General: Chief complaint: General Medical Stated complaint: high BP Time Seen by Provider: 02/28/25 14:45 Related Data Home Medications ?Medication ?Instructions ?Recorded ?Confirmed allopurinol 300 mg tablet 300 mg PO DAILY 11/25/24 02/28/25 levothyroxine 75 mcg tablet 75 mcg PO DAILY 11/25/24 02/28/25 tizanidine 4 mg tablet 4 mg PO TID PRN muscle spasms 11/25/24 02/28/25 carboxymethylcellulose sodium 0.5 1 drp ophthalmic (eye) BID 12/12/24 02/28/25 % eye drops (Refresh Tears) cetirizine 10 mg capsule (Allergy 10 mg PO DAILY PRN 12/12/24 02/28/25 Relief (cetirizine)) docusate sodium 100 mg capsule 100 mg PO DAILY 12/12/24 02/28/25 (Colace) ibuprofen 200 mg tablet 200 mg PO Q6H PRN 12/12/24 02/28/25 vitamin E (dl, acetate) 180 mg 180 mg PO DAILY 12/12/24 02/28/25 (400 unit) capsule Magnesium as directed 01/15/25 02/28/25 Potassium as directed 01/15/25 02/28/25 hydrochlorothiazide 25 mg tablet 25 mg PO DAILY PRN 02/05/25 02/28/25 Previous Rx's ?Medication ?Instructions ?Recorded ondansetron 4 mg disintegrating 4 mg PO Q8H PRN nausea and 11/15/24 tablet vomiting #10 tabs polyethylene glycol 3350 17 17 g PO DAILY #510 grams 11/15/24 gram/dose oral powder (Miralax) hydroxyzine HCl 10 mg tablet 10 mg PO BID PRN anxiety #60 tabs 12/03/24 lisinopril 20 mg tablet 20 mg PO DAILY #30 tabs 12/12/24 amoxicillin 875 mg-potassium 1 tab PO BID #14 tabs 02/28/25 clavulanate 125 mg tablet clonidine HCl 0.1 mg tablet 0.1 mg PO Q8H PRN blood pressure 02/28/25 #20 tabs Allergies Allergy/AdvReac Type Severity Reaction Status Date / Time morphine Allergy ALGY-Hives Verified 02/28/25 13:15 [facility] ED PFSH: Social History Smoking and tobacco/nicotine status: never used tobacco/nicotine Physical Exam Neuro: EDVIN COMA SCALE: document GCS findings Purdys coma scale total score: 15 Course Vital Signs: Vital signs: Vital Signs Temperature 98.4 F 02/28/25 14:31 Pulse Rate 88 02/28/25 18:00 Respiratory Rate 20 H 02/28/25 17:30 Blood Pressure 168/88 02/28/25 18:00 Pulse Oximetry 96 02/28/25 18:00 Oxygen Delivery Me thod Room Air 02/28/25 18:00 MDM - General Adult Medical Decision Making As I walked in the room to meet the patient, she had a [employer] cheeseburger, fries, and Coke. She did not have any complaints. Bp decreased to 168/81 after clonidine, and Vasotec. Patient still does not have any symptoms. Sent clonidine 0.1 mg for blood pressure greater than 200/greater than 100, however discussed with patient she needs to follow-up with her primary care physician, follow low salt diet. Lab Data 02/28/25 15:10 02/28/25 15:10 Laboratory Results WBC 5.77 10^3/uL (3.29-11.43) 02/28/25 15:10 RBC 3.63 10^6/uL (3.85-5.65) L 02/28/25 15:10 Hgb 12.60 g/dL (11.27-16.99) 02/28/25 15:10 Hct 38.3 % (36-47) 02/28/25 15:10 MCV 105.5 fl (85-98) H 02/28/25 15:10 MCH 34.7 pg (27-33) H 02/28/25 15:10 MCHC 32.9 g/dL (30-55) 02/28/25 15:10 RDW 15.0 % (12.1-15.1) 02/28/25 15:10 Plt Count 213 10^3/cmm (157-399) 02/28/25 15:10 MPV 9.5 fL (7.4-10.4) 02/28/25 15:10 Neut % (Auto) 53.5 % 02/28/25 15:10 Lymph % (Auto) 33.4 % 02/28/25 15:10 Dickinson % (Auto) 7.6 % 02/28/25 15:10 Eos % (Auto) 4.5 % 02/28/25 15:10 Baso % (Auto) 0.7 % 02/28/25 15:10 Neut # (Auto) 3.08 10^3/uL (1.8-7.7) 02/28/25 15:10 Lymph # (Auto) 1.9 10^3/uL (0.8-4.8) 02/28/25 15:10 Dickinson # (Auto) 0.4 10^3/uL (0.2-0.9) 02/28/25 15:10 Eos # (Auto) 0.3 10^3/uL (0.0-0.8) 02/28/25 15:10 Baso # (Auto) 0.0 10^3/uL (0.0-0.1) 02/28/25 15:10 Nucleated RBC % (auto) 0 % 02/28/25 15:10 Nucleated RBCs # 0.0 /100WBC 02/28/25 15:10 Sodium 139 mmol/L (136-145) 02/28/25 15:10 Potassium 3.5 mmol/L (3.5-5.1) 02/28/25 15:10 Chloride 103 mmol/L (98-107) 02/28/25 15:10 Carbon Dioxide 23 mmol/L (22-29) 02/28/25 15:10 Anion Gap 16.5 (5-19) 02/28/25 15:10 BUN 12 mg/dL (8-23) 02/28/25 15:10 Creatinine 0.5 mg/dL (0.5-0.9) 02/28/25 15:10 GFR Calculation Not Reportable 02/28/25 15:10 Glucose 125 mg/dL (65-115) H 02/28/25 15:10 Calculated Osmolality 289 mOsm/kg (285-295) 02/28/25 15:10 Calcium 8.9 mg/dL (8.5-10.5) 02/28/25 15:10 Total Bilirubin 1.0 mg/dL (0.15-1.2) 02/28/25 15:10 AST 43 U/L (0-32) H 02/28/25 15:10 ALT 23 U/L (0-33) 02/28/25 15:10 Alkaline Phosphatase 219 U/L (35-105) H 02/28/25 15:10 Total Protein 7.1 g/dL (6.6-8.7) 02/28/25 15:10 Albumin 3.6 g/dL (3.5-5.2) 02/28/25 15:10 Globulin 3.5 g/dL (1.3-4.6) 02/28/25 15:10 No radiology studies performed this visit Discharge Plan Discharge Patient Disposition: Home Clinical Impression: Essential hypertension Condition: Stable Prescriptions: New clonidine HCl 0.1 mg tablet 0.1 mg PO Q8H PRN (Reason: blood pressure) Qty: 20 0RF Rx Instructions: for blood pressure >200 systolic or >100 diastolic No Action tizanidine 4 mg tablet 4 mg PO TID PRN (Reason: muscle spasms) ibuprofen 200 mg tablet 200 mg PO Q6H PRN carboxymethylcellulose sodium [Refresh Tears] 0.5 % drops 1 drp ophthalmic (eye) BID docusate sodium [Colace] 100 mg capsule 100 mg PO DAILY Allergy Relief (cetirizine) 10 mg capsule 10 mg PO DAILY PRN vitamin E (dl, acetate) 180 mg (400 unit) capsule 180 mg PO DAILY lisinopril 20 mg tablet 20 mg PO DAILY Qty: 30 3RF amoxicillin-pot clavulanate 875-125 mg tablet 1 tab PO BID Qty: 14 0RF hydroxyzine HCl 10 mg tablet 10 mg PO BID PRN (Reason: anxiety) Qty: 60 0RF Magnesium as directed Potassium as directed levothyroxine 75 mcg tablet 75 mcg PO DAILY allopurinol 300 mg tablet 300 mg PO DAILY hydrochlorothiazide 25 mg tablet 25 mg PO DAILY PRN polyethylene glycol 3350 [Miralax] 17 gram/dose powder 17 g PO DAILY Qty: 510 0RF Rx Instructions: Take 1 scoop daily while taking pain medications. ondansetron 4 mg tablet,disintegrating 4 mg PO Q8H PRN (Reason: nausea and vomiting) Qty: 10 0RF Discharge Orders: Discharge ED (Routine); Ordered 02/28/25 Ordered By: Fanny Alba Referrals: Edelmira Hernandez FNP [Primary Care Provider, Nurse Practitioner] Discharge Diet: Low Salt Discharge Activity: Increase activity as tolerated Patient Instructions: DASH Eating Plan (ED), Hypertension (ED) Activity Restrictions/Additional Instructions: Low-salt diet as described in information above. Follow-up with your primary care provider regarding better blood pressure control Only take the clonidine as needed if blood pressure is greater than 200 on the top number or greater than 100 on the bottom number. Follow up with your primary care provider. Is important to coordinate your blood pressure through your primary care and have follow-up. Print Language: French Coding Level of Care Code ED Maintenance Supervisor 2Nd Shift for Estiven Suárez
[2025-02-28] MEDS: cloNIDine 0.1 mg Tablet PO (16:48)
[2025-02-28] MEDS: enalaprilat 2.5 mg/2 mL SDV 1.25 MG IVP (17:11)
== END 2025-02-28 18:21 | disposition home or self-care (01) ==
PROVIDERS: Emergency Provider Physician Assistant; PCP Nurse Practitioner
DX: I10 Essential (primary) hypertension (principal)
CPT/HCPCS: 36415; 80053; 85025; 96374; 99284; J9999

== ENCOUNTER → 2025-03-10 12:59 | Outpatient (BNVA) | payer MEDICARE, SELFPAY | PROVIDERS: PCP Nurse Practitioner; Visit Provider Orthopaedic Surgery | DX: S42.292D Other displaced fracture of upper end of left humerus, subsequent encounter for fracture with routine healing (principal); X58.XXXD Exposure to other specified factors, subsequent encounter | CPT/HCPCS: 73030; 99213 ==

== ENCOUNTER 2025-03-11 06:30 | Outpatient (RCR) | payer MEDICARE, SELFPAY | END 2025-03-12 10:31 | disposition home or self-care (01) | LOC: MPT 06:30 | PROVIDERS: PCP Nurse Practitioner; Visit Provider Orthopaedic Surgery | DX: S42.209D Unspecified fracture of upper end of unspecified humerus, subsequent encounter for fracture with routine healing (principal); X58.XXXD Exposure to other specified factors, subsequent encounter | CPT/HCPCS: 97110 ==

== ENCOUNTER 2025-03-13 06:35 | Outpatient (CLI) | payer MEDICARE, SELFPAY ==
--- NOTE | 2025-03-13 06:39 | USCV_ITS ---
Bessfebruary Age: 79 Gender: F : 1945 Exam Date: 03/13/2025 07:06 Ordering Phys: Gordon Brown M.D ([email or web address]) Technologist: KITTY Exam Location: [facility] [place] Indication: Stenosis Risk Factors: Previous Vascular Surgery: Right Brachial BP: / Left Brachial BP: / Right Left Velocity (cm/s) Spectral Plaque Velocity (cm/s) Spectral Plaque Syst/Diast Broadening Syst/Diast Broadening 75.70/ 20.70 Prox CCA 70.90 / 10.80 78.90/ 19.30 Mid CCA 64.40 / 14.10 68.50/ 14.10 Distal CCA 66.60 / 14.10 36.30/ 6.70 Prox ICA 42.60 / 10.80 59.40/ 16.20 Mid ICA 57.10 / 16.30 44.70/ 13.80 Distal ICA 58.00 / 19.00 65.60 ECA 62.90 0.50 ICA/CCA 0.60 Antegrade Vertebral Antegrade 39.40/ 8.40 cm/s 43.90/ 9.30 cm/s Tri Subclavian Tri 54.60 122.9 0 CONCLUSIONS Right ICA stenosis <50%. Mild atheromatous plaque right carotid bulb/ICA. Left ICA stenosis <50%. Mild atheromatous plaque left carotid bulb/ICA. Normal antegrade Doppler flow noted in the right vertebral artery. Normal antegrade Doppler flow noted in the left vertebral artery. Amish Zambrano MD (Electronically Signed) Final Date: 13 March 2025 16:00 S
--- NOTE | 2025-03-13 06:39 | USCV_ITS ---
Micfebruary Age: 79 Gender: F : 1945 Exam Date: 03/13/2025 06:47 Ordering Phys: Gordon Brown M.D ([email or web address]) Technologist: KITTY Exam Location: [facility] [place] Indication: Sob BP: 159 / 92 HR: 72 Rhythm: Sinus Technical Quality: Adequate MEASUREMENTS (Male / Female) Normal Values 2D ECHO LV Diastolic Diameter PLAX 4.3 cm 4.2 - 5.9 / 3.9 - 5.3 cm IVS Diastolic Thickness 1.4 cm 0.6 - 1.0 / 0.6 - 0.9 cm IVS Systolic Thickness 1.7 cm LVPW Diastolic Thickness 1.1 cm 0.6 - 1.0 / 0.6 - 0.9 cm LVPW Systolic Thickness 1.3 cm LVOT Diameter 1.8 cm LV Ejection Fraction 2D Teich 61.5 % LV Ejection Fraction MOD 4C 59.3 % LV Ejection Fraction MOD 2C 60.5 % LV Ejection Fraction 2C AL 61.5 % LA Diameter 3.0 cm RA Systolic Volume 4C AL 18.8 ml RA Systolic Volume 4C MOD 18.0 ml LA Sys Volume AL 28.0 cm cubed LA Sys Volume Index AL 14.7 cm cubed/m squared Aorta at Sinotubular Diameter 2.3 cm M-MODE LA Ao Ratio MM 1.3 AV Cusp Separation MM 1.2 cm DOPPLER AV Peak Velocity 81.0 cm/s LVOT Peak Velocity 77.0 cm/s AV Area Cont Eq vti 3.5 cm squared AV Area Cont Eq pk 2.4 cm squared MV Peak Velocity 107.0 cm/s MV Area PHT 4.3 cm squared Mitral E to A Ratio 0.6 TR Peak Velocity 69.0 cm/s TR Peak Gradient 1.9 mmHg TV Peak E Velocity 66.0 cm/s PV Peak Velocity 101.0 cm/s FINDINGS Left Ventricle Left ventricle is normal in size. LV systolic function is normal with EF of 60-65%. No regional wall motion abnormalities are seen. Grade 1 diastolic dysfunction Right Ventricle Normal in size and function Right Atrium Normal in size Left Atrium Normal in size Mitral Valve Structurally normal mitral valve. Mild mitral regurgitation Aortic Valve Structurally normal aortic valve. No significant stenosis or regurgitation Tricuspid Valve Insufficient TR jet to evaluate RVSP Pulmonic Valve Not well visualized Pericardium Normal Aorta IVC Not well visualized CONCLUSIONS LV systolic function is normal with EF of 60 to 65%. Grade 1 diastolic dysfunction. Mild mitral regurgitation Gordon Brown MD (Electronically Signed) Final Date: 22 March 2025 21:33 S
== END 2025-03-13 06:36 | disposition home or self-care (01) ==
LOC: RAD 06:35
PROVIDERS: PCP Nurse Practitioner; Visit Provider Internal Medicine
DX: I65.23 Occlusion and stenosis of bilateral carotid arteries (principal); R06.02 Shortness of breath; R93.1 Abnormal findings on diagnostic imaging of heart and coronary circulation; I34.0 Nonrheumatic mitral (valve) insufficiency
CPT/HCPCS: 93306; 93880

== ENCOUNTER → 2025-04-01 10:05 | Outpatient (BNVA) | payer MEDICARE, SELFPAY | PROVIDERS: PCP Nurse Practitioner; Visit Provider Podiatrist Foot & Ankle Surgery | DX: M79.671 Pain in right foot (principal); M25.571 Pain in right ankle and joints of right foot; S86.011A Strain of right Achilles tendon, initial encounter; W19.XXXA Unspecified fall, initial encounter | CPT/HCPCS: 73610; 99204 ==

== ENCOUNTER → 2025-05-06 09:20 | Outpatient (BNVA) | payer MEDICARE, SELFPAY | PROVIDERS: PCP Nurse Practitioner; Visit Provider Podiatrist Foot & Ankle Surgery | DX: S86.011A Strain of right Achilles tendon, initial encounter (principal); X58.XXXA Exposure to other specified factors, initial encounter | CPT/HCPCS: 99213 ==

== ENCOUNTER → 2025-07-29 14:46 | Outpatient (BNVA) | payer MEDICARE, SELFPAY | PROVIDERS: PCP Nurse Practitioner; Visit Provider Nurse Practitioner | DX: E03.9 Hypothyroidism, unspecified (principal); I10 Essential (primary) hypertension | CPT/HCPCS: 80053; 80061; 84443 ==